=== PATIENT | female | born 1980 | race Caucasian/White ===

== ENCOUNTER → 2017-12-22 07:25 | Outpatient (CLI) | payer OTHER, MEDICAID, SELFPAY ==
--- NOTE | 2017-12-22 07:26 | DI.US.S_ITS ---
PROCEDURE: US OB <= 14 WEEKS FETUS INDICATIONS: DATES OUTSIDE/PRIOR DATING DATA: Last menstrual period (LMP): 10/11/17. LMP-based estimated date of delivery (ABDULLAHI): 07/18/18. First dating scan (date and location): 12/22/17. Estimated date of delivery (ABDULLAHI) from first dating scan: 07/16/18. TECHNIQUE: Real-time scanning was performed of the fetus and maternal pelvic organs, with image documentation. Endovaginal scanning was also performed to better visualize the fetus and maternal ovaries. COMPARISON: None. FINDINGS: Embryo: [place]-rump length measures 3.6 cm corresponding to 10 week 4 days. Heart rate measures 168 beats per minute. Measurement variability in dating: +/- 4 weeks by LMP, +/- 7 days by mean sac diameter (use before 6 weeks gestation if crown-rump length not able to be measured), +/- 5 days by crown-rump length (up to 8 weeks 6 days gestation), +/- 7 days by crown-rump length (up to 13 weeks 6 days gestation). Maternal organs: Ovaries not visualized. Limited images through the kidneys demonstrate no hydronephrosis. IMPRESSION: Single living IUP with gestational age estimated at 10 weeks 4 days. Dictated by: Catalino RUGGIERO Interpreted: Dayo Sosa MD on 12/22/2017 at 8:37 Approved by: Dayo Sosa M.D. on 12/22/2017 at 11:41
[2017-12-22 08:39] LABS: Add Manual Diff / Slide Review NO; Basophils Percent Auto 0.5 % (0-2); Hematocrit 37.7 % (36-46); Hemoglobin 12.7 g/dL (12.0-16.0); Lymphocytes Percent Auto 18.1 % (25-40); Mean Corpuscular HGB Conc 33.7 % (30-36); Mean Corpuscular Hemoglobin 28.7 PG (26-34); Mean Corpuscular Volume 85.2 fL (80-100); Monocytes Percent Auto 6.5 % (3-14); Neutrophils Absolute Auto 3800 /uL (3000-5900); Neutrophils Percent Auto 71.9 % (50-75); Platelet Count 178 X10^3/uL (150-400); Red Blood Cell Count 4.42 X10^6/uL (4.0-5.2); Red Cell Distribution Width 14.8 % (11.6-14.8); White Blood Cell Count 5.4 X10^3/uL (4.5-11.0)
[2017-12-22 08:44] LABS: Appearance Urine UA CLEAR; Bilirubin Urine UA NEGATIVE (NEGATIVE); Color Urine UA YELLOW; Glucose Urine UA NEGATIVE (Normal); Ketones Urine UA TRACE (NEGATIVE); Leukocyte Esterase Urine UA NEGATIVE (NEGATIVE); Nitrite Urine UA NEGATIVE (Negative); Occult Blood Urine UA NEGATIVE (Negative); Protein Urine UA TRACE (Negative); Urobilinogen Urine UA 0.2 E.U./dL (0.2); pH Urine UA 7.5 (4.5-8.0)
[2017-12-22 09:28] LABS: Hepatitis B Surface Antigen NEGATIVE s/c (NEGATIVE); Rubella Antibody IgG 26.7 IU/mL (>15)
[2017-12-22 09:44] LABS: HIV 1 and 2 Antibody NEGATIVE (NEGATIVE); Hep C Virus Ab w/Reflex Quant NEGATIVE s/c (NEGATIVE)
[2017-12-23 13:23] LABS: RPR Screen Nonreactive (Nonreactive)
[2017-12-24 08:53] LABS: HSV 2 IGG AB < 0.90 index (< 0.90)
== END ==
PROVIDERS: PCP Obstetrics & Gynecology; Visit Provider Obstetrics & Gynecology
DX: Z34.81 Encounter for supervision of other normal pregnancy, first trimester (principal); Z36.89 Encounter for other specified antenatal screening; Z3A.10 10 weeks gestation of pregnancy
CPT/HCPCS: 36415; 76801; 76817; 80055; 81003; 86695; 86696; 86703; 86787; 86803; 86850; 86900; 86901; 87086

== ENCOUNTER → 2018-01-04 15:34 | Outpatient (CLI) | payer OTHER, MEDICAID, SELFPAY ==
[2018-01-04 20:41] LABS: Urine N gonorrhoeae NOT DETECTED
[2018-01-04 20:44] LABS: Urine Chlamydia NOT DETECTED
== END ==
PROVIDERS: PCP Obstetrics & Gynecology; Visit Provider Obstetrics & Gynecology
DX: Z34.81 Encounter for supervision of other normal pregnancy, first trimester (principal)
CPT/HCPCS: 87491; 87591

== ENCOUNTER → 2018-03-03 09:11 | Outpatient (CLI) | payer OTHER, MEDICAID, SELFPAY ==
--- NOTE | 2018-03-03 09:12 | DI.US.S_ITS ---
PROCEDURE: US OB >= 14 WEEKS FETUS INDICATIONS: ANATOMY SURVEY OUTSIDE/PRIOR DATING DATA: Last menstrual period (LMP): 10/11/17. LMP-based estimated date of delivery (ABDULLAHI): 07/18/18. First dating scan (date and location): 01/01/18. Estimated date of delivery (ABDULLAHI) from first dating scan: 07/16/18. TECHNIQUE: Real-time scanning was performed of the fetus, with image documentation and biometric measurements. Endovaginal scanning: No COMPARISON: [facility], , OB >= 14 WEEKS FETUS, 01/04/2018, 15:46. FINDINGS: General: A single living intrauterine gestation is present. Presentation: Transverse. Placenta: Placental position is posterior, without previa. Amniotic fluid index: 1.2 cm, normal range is 5-24 cm. heart rate: 144 beats per minute. Maternal cervical canal: 4.3 cm long. Normal lower limit is 2.5 cm. biometrics: Biparietal diameter: 19 weeks 6 days Head circumference: 20 weeks 1 day Abdominal circumference: 20 weeks 1 day Femur length: 20 weeks 0 days Estimated gestational age from initial scan: 20 weeks 5 days Composite gestational age from present scan: 20 weeks 0 days Estimated weight and percentile: 332 g; 17 percentile Measurement variability for biometric dating: +/- 7 days from 14 weeks to 15 weeks 6 days gestation, +/- 10 days from 16 weeks to 21 weeks 6 days gestation, +/- 2 weeks from 22 weeks to 27 weeks 6 days gestation, +/- 3 weeks for 28 weeks gestation or later. weight reference: 4500 g or EFW >90/95% is considered macrosomia or large for gestational age. EFW <10% is small for gestational age. EFW 5% or less is considered intra-uterine growth restriction. Anatomic survey: Neuro: Ventricles are non-dilated at less than 10 mm. Cisterna magna is normal at 3-11 mm. Cerebellum is normal in size and morphology. Nuchal skin fold: Normal at less than 6 mm between 14-21 weeks gestational age. Face: Nose and lips, facial profile are normal. Spine: No evidence for spina bifida. Heart: 4-chambered heart is present, with normal ventricular outflow tracts. Diaphragm: Diaphragm is intact. Stomach: Left-sided stomach is present. Kidneys: No hydronephrosis. Normal is less than 5 mm in 2nd trimester, less than 7 mm in 3rd trimester. Cord: 3-vessel cord has orthotopic insertion. Bladder: Normal in size. Extremities: All 4 extremities identified. IMPRESSION: 1. Single living IUP we demonstrated an interval growth is normal. 2. Normal anatomic survey. Dictated by: Catalino RUGGIERO Interpreted: Ute De Guzman MD on 03/03/2018 at 11:55 Approved by: Ute De Guzman M.D. on 03/03/2018 at 14:56
== END ==
PROVIDERS: PCP Nurse Practitioner Gerontology; Visit Provider Obstetrics & Gynecology
DX: Z34.82 Encounter for supervision of other normal pregnancy, second trimester (principal); Z3A.20 20 weeks gestation of pregnancy
CPT/HCPCS: 76811

== ENCOUNTER → 2018-04-13 07:44 | Outpatient (CLI) | payer OTHER, MEDICAID, SELFPAY ==
[2018-04-13 10:09] LABS: Hematocrit 31.2 % (36-46); Hemoglobin 10.2 g/dL (12.0-16.0)
[2018-04-13 10:17] LABS: GTT (PREG) 1 Hour PP 50gm Dose 86 mg/dL (76-139)
== END ==
PROVIDERS: PCP Nurse Practitioner Gerontology; Visit Provider Obstetrics & Gynecology
DX: Z34.82 Encounter for supervision of other normal pregnancy, second trimester (principal)
CPT/HCPCS: 36415; 82950; 85014; 85018

== ENCOUNTER → 2018-06-23 13:17 | Outpatient (CLI) | payer OTHER, MEDICAID, SELFPAY ==
[2018-06-24 13:19] LABS: Strep Grp B PCR NEG for Grp B Strep
== END ==
PROVIDERS: PCP Nurse Practitioner Gerontology; Visit Provider Obstetrics & Gynecology
DX: Z34.83 Encounter for supervision of other normal pregnancy, third trimester (principal); Z3A.36 36 weeks gestation of pregnancy
CPT/HCPCS: 87653

== ENCOUNTER 2018-07-14 14:58 | Outpatient (CLI) | payer OTHER, MEDICAID, SELFPAY | END 2018-07-14 16:29 | disposition home or self-care (01) | LOC: OB 07-18 14:22 | PROVIDERS: PCP Nurse Practitioner Gerontology; Visit Provider Obstetrics & Gynecology | DX: O47.1 False labor at or after 37 completed weeks of gestation (principal); Z3A.39 39 weeks gestation of pregnancy | CPT/HCPCS: 59025; G0378; G0379 ==

== ENCOUNTER 2018-07-20 06:53 | Inpatient (IN) | payer OTHER, MEDICAID, SELFPAY ==
--- NOTE | 2018-07-20 07:54 | PM.OBHP.1 ---
OB HPI Date/Time Date of admission: 07/20/18 Date Patient Seen: 07/20/18 Time Patient Seen: 07:55 History of Present Condition Chief complaint: OBS : 7 Para: 4 Estimated Date of Delivery: 07/17/18 Estimated Gestational Age (weeks): 40+3 Narrative: Susan Wilcox is a 38 year old female 7 para 4 at 40-,3/7 weeks gestation here for induction of labor Indications Indication for induction OB: post dates History of Present care: good care, initiated at week # (12), number of visits (9) and pounds weight gain (20) Dating criteria: LMP confirmed by 1st trimester US Ultrasounds: normal 1st trimester US and normal mid trimester US Obstetrical complications: none Medical complications: none Preadmission Labs Blood type: A (+) positive -: Antibody screen: negative, GBS status: negative, HBsAG: negative, HIV: negative, HSV 1: positive, HSV 2: negative and RPR/VDLR: negative -: Chlamydia screen: not detected and Gonorrhea screen: not detected -: Rubella: immune and Varicella: immune HCT: 37 HCAB: negative PAP: Normal Quad screen: Normal Urine: Mixed 1 hr GTT: 86 Prior (ies) History: 1 molar 4 's 1 SAB Evaluation Evaluation Baseline heart rate: 130 Variability: Moderate (11-25) monitor accelerations: Present monitor decelerations: Absent Contraction Frequency (minutes): 5 Uterine Contraction Intensity: Mild Category of Tracing: I Cervical dilation (cm): 2 Cervical effacement (%): 75 station: -3 PFSH Surgical History (Updated 08/04/17 @ 12:51 by Jenniffer Wilburn) History of third molar tooth extraction (Resolved) Status post dilation and curettage (Resolved 2012) Status post dilation and curettage (Resolved 09/12/15) Social History Smoking Status: Never smoker Social History Smoking Status: Never smoker Meds Home Medications Medication Instructions Recorded Confirmed Type riboflavin (vitamin B2) [Vitamin QHS #0 09/12/15 History B-2] ondansetron 4 mg disintegrating 4 mg PO Q6H PRN #20 tab 12/20/17 Rx tablet omeprazole 20 mg capsule,delayed 20 mg PO DAILY #30 cap 06/13/18 Rx release Allergies Allergy/AdvReac Type Severity Reaction Status Date / Time penicillin G Allergy Mild RASH Unverified 05/26/17 12:19 Exam Vital Signs (past 8 hours): Generally: Patient lying in bed, no acute distress Lungs: Clear to auscultation bilaterally Cardiovascular: Regular rate and rhythm Fundal height: 39 cm Estimated weight: 7-1/2 lb Extremities: Negative Homans, no edema Assessment and Plan Assessment and Plan Assessment and Plan narrative: Assessment: 38-year-old 7 para 4 at 40-,3/7 weeks gestation for induction of labor Plan: Pitocin per protocol to Epidural as necessary Artificial rupture of membranes when able Expected management to spontaneous vaginal delivery Time Spent with Patient Total time spent with greater than 50% in coordination of care (as documented) at patient's floor/unit and/or counseling patient:: 15-24 minutes
[2018-07-20] MEDS: LACTATED RINGERS 1,000 ML 100 ML IV ×2 (08:08→15:03)
[2018-07-20] MEDS: OXYTOCIN PREMIX 30 UNIT/500 ML PLAST..BAG IV (08:09)
[2018-07-20 08:46] LABS: Basophils Absolute Auto 0 /uL (0-100); Basophils Percent Auto 0.7 % (0-2); Eosinophils Absolute Auto 200 /uL (0-450); Eosinophils Percent Auto 2.7 % (2-4); Hematocrit 37.1 % (36-46); Hemoglobin 12.6 g/dL (12.0-16.0); Lymphocytes Absolute Auto 1400 /uL (1100-4500); Lymphocytes Percent Auto 20.9 % (25-40); Mean Corpuscular HGB Conc 33.9 % (30-36); Mean Corpuscular Hemoglobin 28.9 PG (26-34); Mean Corpuscular Volume 85.2 fL (80-100); Monocytes Absolute Auto 500 /uL (0-900); Monocytes Percent Auto 7.9 % (3-14); Neutrophils Absolute Auto 4400 /uL (1500-7000); Neutrophils Percent Auto 67.8 % (50-75); Red Blood Cell Count 4.36 X10^6/uL (4.0-5.2); Red Cell Distribution Width 17.3 % (11.6-14.8); White Blood Cell Count 6.5 X10^3/uL (4.5-11.0)
[2018-07-20 08:52] LABS: Add Manual Diff / Slide Review SLIDE REVIEW; Platelet Count 122 X10^3/uL (150-400)
[2018-07-20 09:11] VITALS: BP 136/86
[2018-07-20 09:20] LABS: Poikilocytosis 1+
--- NOTE | 2018-07-20 21:46 | PM.OBPRVD ---
Events: Labor Induction Delivery date: 07/20/18 Intrapartal events: None Cervical ripening method: none Induction method: per pitocin protocol Delivery augmentation: rupture of membranes Delivery monitor: external FHT and external uterine Route of delivery: Episiotomy description: None L&D Laceration Description: Superficial (Labial) Delivery repair: chromic Estimated blood loss (mL): 150 Anesthesia type: Epidural Complications: None Narrative: The patient was complete and pushed x2. At 9:24 p.m., a live female delivered spontaneously in the right occiput transverse presentation, over an intact perineum. The remainder of the body delivered without difficulty and was placed on mom's abdomen. Once the cord stopped pulsing was clamped x2 and cut. Cord bloods were obtained. Pitocin was given in the IV fluids. At 9:38 p.m., the placenta delivered intact with a three-vessel cord. Fundus was massaged to firm. Estimated blood loss 150 cc. There were 2 superficial lacerations at the labia minora bilaterally. These were repaired with 4 0 chromic. Hemostasis was achieved. Apgars 8 at 1 minute and 9 at 5 minutes. . Epidural analgesia. Mom and infant stable to recovery. Plan for aftercare: To routine care
[2018-07-21] MEDS: KETOROLAC 30 MG/ML VIAL IV ×2 (02:25→09:14)
[2018-07-21 06:56] LABS: Hematocrit 34.1 % (36-46); Hemoglobin 11.4 g/dL (12.0-16.0)
[2018-07-21] MEDS: ACETAMINOPHEN 325 MG TABLET 650 MG PO (06:57)
[2018-07-21] MEDS: LANOLIN OINT 7 GM 1 APPLIC TOP (09:04)
[2018-07-21] MEDS: DOCUSATE 250 MG CAPSULE PO (09:04)
[2018-07-21] MEDS: PRENATAL VIT,CALC/IRON/FOLIC 1 TABLET 1 TAB PO (09:04)
[2018-07-21 09:11] VITALS: TEMP 36.8
[2018-07-21] MEDS: OXYCODONE/ACETAMINOPHEN 5/325 TABLET 2 TAB PO ×2 (09:11→19:01)
[2018-07-21 09:14] VITALS: TEMP 36.8
[2018-07-21 18:44] VITALS: BP 111/72; PULSE 76; TEMP 36.8
--- NOTE | 2018-07-21 21:32 | P.DS_ITS ---
Discharge Providers Date of admission: 07/20/18 06:53 Discharge Date: 07/21/18 Primary care physician: AURELIA Goldberg Consults: 07/21/18 00:24 Consult to Household Appliance Repairer Routine Comment: Discharge provider: Janie Keith MD Summary Date Patient Seen: 07/21/18 Time Patient Seen: 14:00 Procedures: Artificial rupture of membranes Augmentation of labor with Pitocin Epidural analgesia Spontaneous vaginal delivery Hospital Course: Patient is a 38-year-old who was admitted on 07/20/2018 for rupture of membranes for induction of labor. She had clear amniotic fluid. She was started on Pitocin augmentation. She received an epidural for pain management. She progressed and had a spontaneous vaginal delivery without complication Her course was unremarkable. She is discharged home on postop day # 1. She will follow up at 6 weeks. Peripartum Data Infant Delivery Method: Natural Vaginal Laceration description: Superficial Episiotomy description: None Procedures: Artificial rupture of membranes Pitocin augmentation of labor Epidural analgesia Spontaneous vaginal delivery complications: none Status at Discharge Cognitive/behavioral status at discharge: oriented Functional status at discharge: independent ambulation Overall status at discharge: patient is progressing back to baseline Time Spent with Patient Total time spent providing and/or coordinating discharge services: Less than 30 minutes Objective Labs Result Diagrams: 07/21/18 06:43 Labs: Laboratory Results - last 24 hr 07/21/18 06:43 Hgb 11.4 L Hct 34.1 L Exam Vital Signs (past 8 hours): - 07/21/18 18:44 Temperature 98.3 F Pulse Rate 76 Blood Pressure 111/72 Discharge Plan Discharge Plan Patient Disposition: Home Discharge comment: Call with fever, chills or bleeding vaginally more than a pad in an hour Discharge Med Rec/Prescriptions Prescriptions: New oxycodone-acetaminophen [Percocet] 5-325 mg tablet 1 tab PO Q4-6H PRN (Reason: pain) Qty: 14 RF: 0 Continued Vitamin B-2 25 mg tablet 1 tab PO QHS Qty: 0 RF: 0 Discontinued omeprazole 20 mg capsule,delayed release(DR/EC) 20 mg PO DAILY Qty: 30 RF: 2 Follow up/Referrals: Janie Keith MD [Physician] - 6 Weeks (Pt has appointment with Dr. Airas on August @ 2pm) Provider Discharge Instructions Diet: Regular Activity: No intercourse Skin/Wound/Dressing Care Report to your healthcare provider any signs of infection, such as:: chills, fever, increased pain and unusual drainage Visit Report/Discharge Packet Instructions: DI for Labor and Delivery, Vaginal Stand Alone Forms: Discharge: Care Discharge Data Primary Care Provider: Hannah Mckeon Attending Provider: Janie Keith Admit Date/Time: 07/20/18 06:53 Discharges patient from system. Discharge Date/Time: 07/21/18 19:00
== END 2018-07-21 19:00 | disposition home or self-care (01) | DRG 560 ==
PROVIDERS: Admitting Provider Obstetrics & Gynecology; PCP Nurse Practitioner Gerontology; Visit Provider Obstetrics & Gynecology
DX: O48.0 Post-term pregnancy (principal); Z3A.40 40 weeks gestation of pregnancy; Z37.0 Single live birth; O70.0 First degree perineal laceration during delivery
CPT/HCPCS: 01967; 36415; 59050; 59409; 85014; 85018; 85025; 86850; 86900; 86901; J1885; J2590; J3010

== ENCOUNTER → 2019-12-18 15:11 | Outpatient (CLI) | payer OTHER, MEDICAID, SELFPAY ==
[2019-12-18 15:23] LABS: Add Manual Diff / Slide Review NO; Basophils Absolute Auto 0 /uL (0-100); Eosinophils Absolute Auto 200 /uL (0-450); Eosinophils Percent Auto 4.2 % (2-4); Hematocrit 41.5 % (36-46); Hemoglobin 13.6 g/dL (12.0-16.0); Lymphocytes Absolute Auto 1400 /uL (1100-4500); Mean Corpuscular HGB Conc 32.8 % (30-36); Mean Corpuscular Hemoglobin 29.9 PG (26-34); Mean Corpuscular Volume 91.1 fL (80-100); Monocytes Absolute Auto 300 /uL (0-900); Monocytes Percent Auto 5.9 % (3-14); Neutrophils Absolute Auto 2700 /uL (1500-7000); Neutrophils Percent Auto 57.9 % (50-75); Platelet Count 200 X10^3/uL (150-400); Red Blood Cell Count 4.56 X10^6/uL (4.0-5.2); Red Cell Distribution Width 12.9 % (11.6-14.8); White Blood Cell Count 4.6 X10^3/uL (4.5-11.0)
[2019-12-18 16:17] LABS: HEMOLYSIS < 15 (0-50); Iron 76 ug/dL (37-170)
[2019-12-18 16:28] LABS: Percent Iron Saturation 23 % (15-50); Total Iron Binding Capacity 330 ug/dL (265-497); Transferrin 258 mg/dL (206-381)
[2019-12-18 16:47] LABS: TSH w/ Reflex to FT4 1.02 uIU/mL (0.47-4.68)
== END ==
PROVIDERS: PCP Registered Nurse Diabetes Educator; Referring Provider Registered Nurse Diabetes Educator; Visit Provider Registered Nurse Diabetes Educator
DX: D50.9 Iron deficiency anemia, unspecified (principal); F41.9 Anxiety disorder, unspecified; R53.83 Other fatigue
CPT/HCPCS: 36415; 83540; 83550; 84443; 85025

== ENCOUNTER → 2022-05-15 10:23 | Outpatient (CLI) | payer OTHER, MEDICAID, SELFPAY ==
[2022-05-15 11:24] LABS: Follicle Stimulating Hormone 3.28 mIU/mL
[2022-05-15 16:51] LABS: Free T4, Direct Thyroxine 1.04 ng/dL (0.78-2.19)
[2022-05-15 17:05] LABS: Thyroid Stimulating Hormone 0.893 uIU/mL (0.47-4.68)
== END ==
PROVIDERS: PCP Registered Nurse Diabetes Educator; Referring Provider Obstetrics & Gynecology; Visit Provider Obstetrics & Gynecology
DX: N95.1 Menopausal and female climacteric states (principal); R53.83 Other fatigue
CPT/HCPCS: 36415; 83001; 84439; 84443

== ENCOUNTER → 2022-05-25 07:54 | Outpatient (CLI) | payer OTHER, MEDICAID, SELFPAY ==
[2022-06-01 14:56] LABS: Percent Free Testosterone 0.94 % (0.50-2.80); Testosterone Free 0.21 ng/dL (0.10-0.85); Testosterone Total 22.6 ng/dL (.)
== END ==
PROVIDERS: Obstetrics & Gynecology; PCP Registered Nurse Diabetes Educator; Referring Provider Registered Nurse Diabetes Educator; Visit Provider Registered Nurse Diabetes Educator
DX: E28.319 Asymptomatic premature menopause (principal); L70.9 Acne, unspecified; R45.4 Irritability and anger
CPT/HCPCS: 36415; 84144; 84402; 84403

== ENCOUNTER → 2023-12-30 07:52 | Outpatient (CLI) | payer OTHER, MEDICAID, SELFPAY ==
[2023-12-30 09:00] LABS: Hematocrit 39.1 % (36-46); Hemoglobin 13.3 g/dL (12.0-16.0); Mean Corpuscular Hemoglobin 30.1 PG (26-34); Mean Corpuscular Volume 88.6 fL (80-100); Platelet Count 205 X10^3/uL (150-400); Red Blood Cell Count 4.42 X10^6/uL (4.0-5.2); Red Cell Distribution Width 13.6 % (11.6-14.8); White Blood Cell Count 3.6 X10^3/uL (4.5-11.0)
[2023-12-30 09:26] LABS: Alanine Aminotransferase 19 IU/L (<35); Albumin 4.2 g/dL (3.5-5.0); Albumin Globulin Ratio 1.6 (1.0-2.8); Alkaline Phosphatase 33 U/L (38-126); Aspartate Aminotransferase 26 IU/L (14-36); BUN Creatinine Ratio 13.3 (6-22); Bilirubin Total 0.6 mg/dL (0.2-1.3); Blood Urea Nitrogen 11 mg/dL (7-17); Calcium 9.6 mg/dL (8.4-10.2); Carbon Dioxide 26 mmol/L (22-32); Chloride 107 mmol/L (98-107); Cholesterol 178 mg/dL (140-199); Estimated Glomerular Filt Rate > 60 mL/min (>60); Globulin 2.6 g/dL (1.7-4.1); Glucose 82 mg/dL (70-100); HDL Cholesterol 70 mg/dL (40-60); HEMOLYSIS < 15 (0-50); LDL Cholesterol Calculated 98 mg/dL (<100); Potassium 4.5 mmol/L (3.4-5.1); Sodium 139 mmol/L (137-145); Total Protein 6.8 g/dL (6.3-8.2); Triglycerides 50 mg/dL (35-150)
[2023-12-30 09:42] LABS: Follicle Stimulating Hormone 3.26 mIU/mL
[2023-12-30 09:44] LABS: HCG Quantitative /Beta subunit < 2.39 mIU/mL; Prolactin 9.1 ng/mL (3.0-18.6)
[2023-12-30 09:52] LABS: TSH w/ Reflex to FT4 0.84 uIU/mL (0.47-4.68)
[2024-01-03 13:37] LABS: Inhibin B 87.7 pg/mL (.)
== END ==
PROVIDERS: PCP Registered Nurse Diabetes Educator; Referring Provider Registered Nurse Diabetes Educator; Visit Provider Registered Nurse Diabetes Educator
DX: N95.1 Menopausal and female climacteric states (principal); N92.6 Irregular menstruation, unspecified; D50.9 Iron deficiency anemia, unspecified; R23.2 Flushing
CPT/HCPCS: 36415; 80053; 80061; 82397; 83001; 83520; 84146; 84443; 84702; 85027

== ENCOUNTER → 2024-01-28 13:10 | Outpatient (CLI) | payer OTHER, SELFPAY ==
--- NOTE | 2024-01-28 13:11 | DI.MG.S_ITS ---
BILATERAL DIGITAL SCREENING MAMMOGRAM 3D/2D WITH CAD: 01/28/2024 CLINICAL: Routine screening. Baseline exam. No prior exams were available for comparison. The breasts are heterogeneously dense, which may obscure small masses (category c / 51-75% glandular tissue). Current study was also evaluated with a Computer Aided Detection (CAD) system. No significant masses, calcifications, or other findings are seen in either breast. IMPRESSION: NEGATIVE There is no mammographic evidence of malignancy. A 1 year screening mammogram is recommended. Based on the Tyrer Cuzick model (a risk assessment model) the patient's lifetime risk is 12.0% and her 10 year risk is 1.6%. According to the ACR, ACS, and NCCN guidelines, an annual breast MRI exam along with mammogram is recommended if the patient's lifetime risk is 20% or greater. This exam was interpreted at Station ID: [id number]. NOTE: For mammograms, a report in lay terms will be sent to the patient. Approximately 15% of breast malignancies will not be visualized mammographically. In the management of a palpable breast mass, a negative mammogram must not discourage biopsy of a clinically suspicious lesion. Electronically Signed By: Rafat pickard/theodore:02/01/2024 07:27:29 letter sent: Normal Exam ACR BI-RADS Category 1: Negative
== END ==
PROVIDERS: Family Provider Registered Nurse Diabetes Educator; PCP Registered Nurse Diabetes Educator; Referring Provider Registered Nurse Diabetes Educator; Visit Provider Registered Nurse Diabetes Educator
DX: Z12.31 Encounter for screening mammogram for malignant neoplasm of breast (principal); R92.333 Mammographic heterogeneous density, bilateral breasts
CPT/HCPCS: 77063; 77067

== ENCOUNTER → 2024-03-20 13:54 | Outpatient (CLI) | payer OTHER, SELFPAY ==
[2024-03-20 15:56] LABS: Influenza A - CEPHEID Flu A NEGATIVE (NEGATIVE); Influenza B - CEPHEID Flu B NEGATIVE (NEGATIVE); Respiratory Syncytial Virus Negative (Negative)
[2024-03-20 15:57] LABS: COVID-19 CEPHEID 4-PLEX PCR Negative (Negative)
== END ==
PROVIDERS: Family Provider Registered Nurse Diabetes Educator; PCP Registered Nurse Diabetes Educator; Visit Provider Registered Nurse
DX: R07.0 Pain in throat (principal); R05.9 Cough, unspecified; R09.89 Other specified symptoms and signs involving the circulatory and respiratory systems
CPT/HCPCS: 87635; 87400 ×2; 87420; 0241U; 87070; 87880

== ENCOUNTER 2024-03-28 07:30 | Outpatient (RCR) | payer OTHER, SELFPAY ==
--- NOTE | 2024-01-31 10:28 | PT.OIE ---
Current Diagnoses Stiffness of right hip, not elsewhere classified (01/31/24) Stiffness of left hip, not elsewhere classified (01/31/24) Stiffness of other specified joint, not elsewhere classified (01/31/24) Low back pain, unspecified (01/31/24) Other lack of coordination (01/31/24) Weakness (01/31/24) Past Medical History (Last Reviewed 12/30/23 @ 14:00 by AURELIA Chowdhury) Insomnia Iron deficiency anemia Past Surgical History (Last Reviewed 12/30/23 @ 14:00 by AURELIA Chowdhury) History of third molar tooth extraction Status post dilation and curettage (2012) Status post dilation and curettage (09/12/15) Visit Care Team Role Provider Type AURELIA Chowdhury Attending Provider 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 Primary Care Provider Referring Provider Specialty: Medical Address: [address] [place] [address] Email: [email or web address] Physical Therapy Initial Evaluation PT-OP-A Visit Information Start: 01/28/24 16:40 Freq: Status: Active Protocol: Document 01/31/24 08:58 NM (Rec: 01/31/24 09:46 NM [id number]) Out-Patient Physical Therapy Visit Information Visit Information Visit Type Initial Evaluation Visit Note 12 visits incl eval/year Visit Start Time 09:02 Visit Stop Time 09:45 Visit Number 02/26 Evaluation Information Evaluation Date 01/31/24 PT-OP-B Current Condition Start: 01/28/24 16:40 Freq: Status: Active Protocol: Document 01/31/24 08:58 NM (Rec: 01/31/24 09:46 NM [id number]) Current Condition History of Current Condition Onset Date September 2023 Current Complaints pain History of Current Condition Pt reports pain back, R>L. She states it began in September 2023, thinks due to overuse, no specific event or trigger. Began with back spasms and tightness. She reprots that had to get a back brace to assist with sitting and doing ADLs/housework for about 1 week, on-off. In end of October, re-occured following a light yoga routine , reports got the spasms and tightness again. When in pain, pt has to lie down and wear a brace. Has gone to a chiropractor on-off, which has helped but not resolved the issues; was going to chiropractor for her neck then transitioned her to back. She likes to lift weights, run, play basketball; has had to taper her activity quite a bit . Pain is primarily in the low back, worse with HS stretch in sitting and deep squat/hip flexion. Has not been taking a muscle relaxer; prn advil. Pt reports that in highschool, she injured her back while lifting on R side; 7-8 years ago, reached from pull below feel level to lift child from pool. No numbness or tingling into BLE, no changes. Has 5 kids, youngest kid born in 2019. When had epidural with last kid, hard to get epidural in, lots of pain in R leg; following, RLE took longer to recover. No c-sections. Hips are tight, R>L, and painful. Current Functional Impairments (Reported) Functional Limitations- ADL's housework Functional Limitations- Work/School driving lifting Functional Limitations- Other yoga: prn stretching, not a great stretcher weight liftinx/wk ([employer] ) - HIIT w/ dumbbells 8-15# db - unable to deadlift and squat, minimal lunges rest/light day 1-3 mi walk runnin mi (2-4 mi), does not stop during but afterwards PT-OP-C Subjective Start: 01/28/24 16:40 Freq: Status: Active Protocol: Document 01/31/24 08:58 NM (Rec: 01/31/24 09:46 NM [id number]) OP-PT Subjective Patient Comments Patient Comments Pt consents to participate in evaluation Patient Questionnaires Oswestry Low Back Index Oswestry Score 30/100 (30% impairment) OP-PT Pain Assessment Location lumbar spine Pain Location Details R>L Intensity 4 Scale Used Numeric (0 - 10) Description Aching,Spasm,Tightness Description- Other worst:7/10, best 3/10 Frequency Frequent Radiating Location along spine, around to side/ front abdomen Pain Aggravating Factors Position,Exercise,Standing, Sitting,Bending,Lifting Pain Alleviating Factors Heat,Medication,Lying Supine Other Pain Alleviating Factors chiropractor PT-OP-E Functional Tests Start: 01/28/24 16:40 Freq: Status: Active Protocol: Document 01/31/24 08:58 NM (Rec: 01/31/24 09:46 NM [id number]) Functional Tests Other flexion test Name of Test arms across chest Score 10 Comment challenging, no pain plank Name of Test full plank for time Score 26 Comment feels tightness in lower back PT-OP-F Manual Assessment Start: 01/28/24 16:40 Freq: Status: Active Protocol: Document 01/31/24 08:58 NM (Rec: 01/31/24 09:46 NM [id number]) Manual Assessments Soft Tissue Assessment Soft Tissue Mobility Assessment Tightness R>L and hypertrophy of lumbar paraspinals L>R Joint Mobility Assessment Joint Mobility Assessment R rot inward, post rot, L shoulder higher, no scoliosis PT-OP-G Mobility & Gait Start: 01/28/24 16:40 Freq: Status: Active Protocol: Document 01/31/24 08:58 NM (Rec: 01/31/24 09:58 NM [id number]) OP Gait Assessment Gait Gait Assistance Required: Independent Distance (Feet) 150 Comments Gait Comments Decrease rotation at trunk, less rotation at hips and motion at TL junction R>L PT-OP-J Posture/Palpation/Skin Start: 01/28/24 16:40 Freq: Status: Active Protocol: Document 01/31/24 08:58 NM (Rec: 01/31/24 09:58 NM [id number]) Posture Evaluation Position Standing Head/C-Spine Posture Forward Head L-Spine Posture Increased Lordosis Shoulder Posture (L) Forward,(R) Forward,(L) Elevated Pelvis Posture Anteriorly Tilted,(R) PSIS Posterior Weight Distribution Balanced Knee Posture (L) Genu Valgus,(R) Genu Valgus Ankle/Foot Posture (L) Neutral,(R) Neutral Palpation Assessment Location lumbar spine Palpation Details Mild tenderness at lower lumbar spine and B SIJ/PSIS R> L; TL junction Mild tenderness at lumbar paraspinals PT-OP-K Range of Motion Start: 01/28/24 16:40 Freq: Status: Active Protocol: Document 01/31/24 08:58 NM (Rec: 01/31/24 09:46 NM [id number]) Lumbar Spine Range of Motion Lumbar Spine Active Percentage Flexion 100 Extension 100 Rotation Left 75 Rotation Right 100 Lateral Flexion Left 100 Lateral Flexion Right 100 Comments + : ext dmitry at TL Junction, pain LF B, tape measure: Hip Goniometric Range of Motion Hip Right Extension 6 Internal Rotation 30 External Rotation 28 Comments Hip ext and hip IR/ER reproduces pinching in low back at TL junction Left Extension 10 Internal Rotation 40 External Rotation 40 PT-OP-L Special Tests Start: 01/28/24 16:40 Freq: Status: Active Protocol: Document 01/31/24 08:58 NM (Rec: 01/31/24 09:46 NM [id number]) Special Tests Lumbar Spine Special Tests Burnette/quadrant Test Results + Comments no radicular; local 3D pain PT-OP-M Strength Start: 01/28/24 16:40 Freq: Status: Active Protocol: Document 01/31/24 08:58 NM (Rec: 01/31/24 09:46 NM [id number]) Trunk Strength Trunk Manual Muscle Testing Flexion 4 Good Extension 4 Good Rotation Left 4+ Good+ Rotation Right 4+ Good+ Lateral Flexion Left 4+ Good+ Lateral Flexion Right 4+ Good+ Comments No pain reproduced with resisted testing; see plank and flexion resisted test for flex/ext strength Hip Strength Hip Manual Muscle Testing Right Flexion (L2) 4- Good- Extension (S1) 4 Good Abduction 4 Good Adduction 4+ Good+ External Rotation 4- Good- Internal Rotation 4- Good- Comments reproduced with hip ext Left Flexion (L2) 4- Good- Extension (S1) 4 Good Abduction 4 Good Adduction 4+ Good+ External Rotation 4- Good- Internal Rotation 4- Good- Knee Strength Knee Manual Muscle Testing Right Flexion (S2) 4+ Good+ Extension (L3) 4+ Good+ Left Flexion (S2) 4+ Good+ Extension (L3) 4+ Good+ PT-OP-Q Treatments Start: 01/28/24 16:40 Freq: Status: Active Protocol: Document 01/31/24 08:58 NM (Rec: 01/31/24 09:46 NM [id number]) Therapeutic Exercises Prone Exercises prone lying Prone Exercise Name head on hands Reps/Minutes 2 min Comments no increase in pain; trialed prone on elbows- min magnus so d/ c Other Exercises quadruped Other Exercise Name HEP - 1. ER rock back, 2. firehydrant, 3. adductor rockback Side bilateral Reps/Minutes 10 ea Comments no increased pain w/ activity; neutral spine, cued pain free range Self-Care/Home Management Treatment Education Patient Education Home Exercise Program,Joint Protection,Pain Management Other Education Education on continuing with pain free exercise, recommending slight decrease in frequency and/or intensity depending on pain levels. At this time, recommended avoiding HIIT work outs with emphasis on gentle stretching and strengthening PT-OP-T Assessment and Plan Start: 01/28/24 16:40 Freq: Status: Active Protocol: Document 01/31/24 08:58 NM (Rec: 01/31/24 09:46 NM [id number]) Physical Therapy Assessment Rehab Potential Rehabilitation Potential Good Evaluation Complexity Number of Personal Factors/Comorbidities 1-2 Number of Body Systems Impaired 1-2 Clinical Presentation at Evaluation Stable Impairments Impairments Activity Tolerance,Balance, Functional Activities, Functional Mobility,Gait, Integument,Pain,Posture,ROM, Sensation,Soft Tissue Mobility ,Strength,Transfers,Vestibular Other Concerns Age Related Concerns PMH: back pain, neck pain, jaw pain Barriers to Rehabilitation Pt has limited number of insurance visits; planning to space visits as needed to maximize PT benefits especially into new year Goals Four Impairment pain with lifting Short Term Goal (STG) Pt will be educated on abdominal bracing and breathwork management in order to improve ability to perform lifting ADLs at home STG Duration 4 weeks Finisher Hand Goal (LTG) Pt will be able to perform at least 3/5 lifts from floor without increase in low back pain or compensation LTG Duration 12 weeks Three Impairment R hip mobility limited Fdc Goal (LTG) Pt will improve R hip IR and ER to at least 35 deg and B hip ext to at least 10 deg without increase in pain symptoms in order to demonstrate improvement in trunk movement during gait and exercise LTG Duration 12 weeks Two Impairment plank 26 with increased instability and pain in low back Short Term Goal (STG) Pt will be able to perform plank for at least 30 seconds with minimal compensations or signs of instability at trunk and no increase in back pain to demonstrate improved trunk strength for lifting and carrying ADLs STG Duration 8 weeks Fdc Goal (LTG) Pt will be able to perform plank for at least 1 minute with minimal compensations or signs of instability at trunk and no increase in back pain to demonstrate improved trunk strength for lifting and carrying ADLs LTG Duration 12 weeks One Impairment not performing HEP Short Term Goal (STG) Pt will report compliance with HEP at least 3x/wk in order to maximize progression with PT and transition to maintenance program upon discharge STG Duration 6 weeks Finisher Hand Goal (LTG) Pt will report return to exercise at least 3x/wk ( lifting, HIIT, yoga, running, etc) with back pain <3/10 with activity LTG Duration 12 weeks Assessment Summary Assessment Pt is a 43 y.o. presenting with subacute back pain beginning without known LANCE in September 2023. Pt has had several episodes of spasms and tightness in her low back, which limits her ability to participate in ADLs/IADLs, work-related tasks, and exercise routines. Pt demonstrates full trunk ROM with limitations and symptom reproduction into extension. Trunk and hip strength is reduced, especially into hip and trunk extension and rotation. Pt has less ROM on R hip than L hip, which likely affects pt's lumbopelvic mobility. Symptoms are primarily reproduced into TL junction, R side more limited than L side with ROM and strength during gait and exercise. Pt also has pain with 3D testing, indicating facet pathology with possible discogenic referral. Pt has postural differences between R and L sides at shoulder and pelvis, which further impacts mobility and activity tolerance. PT educated pt on exam findings and plan of care . Pt would benefit from skilled PT to improve trunk and hip strength and mobility for improved symptom management during ADLs and exercise. Physical Therapy Plan Frequency and Duration Frequency of Treatment 1-2x/wk Duration of treatment (weeks) 12 Plan of Care Start Date 01/31/24 Plan of Care End Date 04/28/24 Therapeutic Interventions Therapeutic Interventions Balance Training,Gait Training ,Home Exercise Program,Joint Mobilizations,Manual Therapy, Neuromuscular Re-education, Orthotic/Prosthetic Management ,Patient/Caregiver Education, Self-Care/Home Management, Sensory Integration,Soft Tissue Mobilization,Taping, Therapeutic Activities, Therapeutic Exercises, Vestibular Rehabilitation Modalities Cold Pack/Ice Massage,Electric Stimulation,Hot Packs, Traction- Mechanical, Ultrasound Other Therapeutic Interventions pelvic realignment Trigger point treatment Next Visit Focus/Plan Next Note Type Treatment Note Next Visit Plan limited HEP- progress ea session as magnus review HEP. Progress hip mobility and into extension. hip stretching. breathwork management. Supine > sitting core bracing. Progress to pallof, eventually progress to lift and rotation. Hip hinge mechanics, lifting, and ROM. Teach self STM. Progress into carries and lifting. In future , can trial HIIT or circuit Manual: STM to back and hips. R Hip mobilizations (IR/ER and ext, L hip ext), spine mobilizations as needed and tolerated
--- NOTE | 2024-02-02 08:17 | PT.OTN ---
Current Diagnoses Stiffness of right hip, not elsewhere classified (02/02/24) Stiffness of left hip, not elsewhere classified (02/02/24) Stiffness of other specified joint, not elsewhere classified (02/02/24) Low back pain, unspecified (02/02/24) Other lack of coordination (02/02/24) Weakness (02/02/24) Physical Therapy Treatment Note PT-OP-A Visit Information Start: 01/28/24 16:40 Freq: Status: Active Protocol: Document 02/02/24 07:27 NM (Rec: 02/02/24 08:17 NM [id number]) Out-Patient Physical Therapy Visit Information Visit Information Visit Type Treatment Note Visit Note 12 visits incl eval/year Visit Start Time 07:32 Visit Stop Time 08:15 Visit Number 03/29 Evaluation Information Evaluation Date 01/31/24 PT-OP-B Current Condition Start: 01/28/24 16:40 Freq: Status: Active Protocol: Document 01/31/24 08:58 NM (Rec: 01/31/24 09:46 NM [id number]) Current Condition History of Current Condition Onset Date September 2023 Current Complaints pain History of Current Condition Pt reports pain back, R>L. She states it began in September 2023, thinks due to overuse, no specific event or trigger. Began with back spasms and tightness. She reprots that had to get a back brace to assist with sitting and doing ADLs/housework for about 1 week, on-off. In end of October, re-occured following a light yoga routine , reports got the spasms and tightness again. When in pain, pt has to lie down and wear a brace. Has gone to a chiropractor on-off, which has helped but not resolved the issues; was going to chiropractor for her neck then transitioned her to back. She likes to lift weights, run, play basketball; has had to taper her activity quite a bit . Pain is primarily in the low back, worse with HS stretch in sitting and deep squat/hip flexion. Has not been taking a muscle relaxer; prn advil. Pt reports that in highschool, she injured her back while lifting on R side; 7-8 years ago, reached from pull below feel level to lift child from pool. No numbness or tingling into BLE, no changes. Has 5 kids, youngest kid born in 2019. When had epidural with last kid, hard to get epidural in, lots of pain in R leg; following, RLE took longer to recover. No c-sections. Hips are tight, R>L, and painful. Current Functional Impairments (Reported) Functional Limitations- ADL's housework Functional Limitations- Work/School driving lifting Functional Limitations- Other yoga: prn stretching, not a great stretcher weight liftinx/wk (youtube ) - HIIT w/ dumbbells 8-15# db - unable to deadlift and squat, minimal lunges rest/light day 1-3 mi walk runnin mi (2-4 mi), does not stop during but afterwards PT-OP-C Subjective Start: 01/28/24 16:40 Freq: Status: Active Protocol: Document 02/02/24 07:27 NM (Rec: 02/02/24 08:17 NM [id number]) OP-PT Subjective Patient Comments Patient Comments Pt reports that her low back is tight, which is typical for thr morning PT-OP-E Functional Tests Start: 01/28/24 16:40 Freq: Status: Active Protocol: Document 01/31/24 08:58 NM (Rec: 01/31/24 09:46 NM [id number]) Functional Tests Other flexion test Name of Test arms across chest Score 10 Comment challenging, no pain plank Name of Test full plank for time Score 26 Comment feels tightness in lower back PT-OP-F Manual Assessment Start: 01/28/24 16:40 Freq: Status: Active Protocol: Document 01/31/24 08:58 NM (Rec: 01/31/24 09:46 NM [id number]) Manual Assessments Soft Tissue Assessment Soft Tissue Mobility Assessment Tightness R>L and hypertrophy of lumbar paraspinals L>R Joint Mobility Assessment Joint Mobility Assessment R rot inward, post rot, L shoulder higher, no scoliosis PT-OP-G Mobility & Gait Start: 01/28/24 16:40 Freq: Status: Active Protocol: Document 01/31/24 08:58 NM (Rec: 01/31/24 09:58 NM [id number]) OP Gait Assessment Gait Gait Assistance Required: Independent Distance (Feet) 150 Comments Gait Comments Decrease rotation at trunk, less rotation at hips and motion at TL junction R>L PT-OP-J Posture/Palpation/Skin Start: 01/28/24 16:40 Freq: Status: Active Protocol: Document 01/31/24 08:58 NM (Rec: 01/31/24 09:58 NM [id number]) Posture Evaluation Position Standing Head/C-Spine Posture Forward Head L-Spine Posture Increased Lordosis Shoulder Posture (L) Forward,(R) Forward,(L) Elevated Pelvis Posture Anteriorly Tilted,(R) PSIS Posterior Weight Distribution Balanced Knee Posture (L) Genu Valgus,(R) Genu Valgus Ankle/Foot Posture (L) Neutral,(R) Neutral Palpation Assessment Location lumbar spine Palpation Details Mild tenderness at lower lumbar spine and B SIJ/PSIS R> L; TL junction Mild tenderness at lumbar paraspinals PT-OP-K Range of Motion Start: 01/28/24 16:40 Freq: Status: Active Protocol: Document 01/31/24 08:58 NM (Rec: 01/31/24 09:46 NM [id number]) Lumbar Spine Range of Motion Lumbar Spine Active Percentage Flexion 100 Extension 100 Rotation Left 75 Rotation Right 100 Lateral Flexion Left 100 Lateral Flexion Right 100 Comments + : ext dmitry at TL Junction, pain LF B, tape measure: Hip Goniometric Range of Motion Hip Right Extension 6 Internal Rotation 30 External Rotation 28 Comments Hip ext and hip IR/ER reproduces pinching in low back at TL junction Left Extension 10 Internal Rotation 40 External Rotation 40 PT-OP-L Special Tests Start: 01/28/24 16:40 Freq: Status: Active Protocol: Document 01/31/24 08:58 NM (Rec: 01/31/24 09:46 NM [id number]) Special Tests Lumbar Spine Special Tests Burnette/quadrant Test Results + Comments no radicular; local 3D pain PT-OP-M Strength Start: 01/28/24 16:40 Freq: Status: Active Protocol: Document 01/31/24 08:58 NM (Rec: 01/31/24 09:46 NM [id number]) Trunk Strength Trunk Manual Muscle Testing Flexion 4 Good Extension 4 Good Rotation Left 4+ Good+ Rotation Right 4+ Good+ Lateral Flexion Left 4+ Good+ Lateral Flexion Right 4+ Good+ Comments No pain reproduced with resisted testing; see plank and flexion resisted test for flex/ext strength Hip Strength Hip Manual Muscle Testing Right Flexion (L2) 4- Good- Extension (S1) 4 Good Abduction 4 Good Adduction 4+ Good+ External Rotation 4- Good- Internal Rotation 4- Good- Comments reproduced with hip ext Left Flexion (L2) 4- Good- Extension (S1) 4 Good Abduction 4 Good Adduction 4+ Good+ External Rotation 4- Good- Internal Rotation 4- Good- Knee Strength Knee Manual Muscle Testing Right Flexion (S2) 4+ Good+ Extension (L3) 4+ Good+ Left Flexion (S2) 4+ Good+ Extension (L3) 4+ Good+ PT-OP-Q Treatments Start: 01/28/24 16:40 Freq: Status: Active Protocol: Document 02/02/24 07:27 NM (Rec: 02/02/24 08:17 NM [id number]) Therapeutic Exercises Supine Exercises figure 4 stretch Supine Exercise Name 1. with 90 hip flex, 2. with rotation Side bilateral Reps/Minutes 1.60, 2. 5 ea direction Comments monitored for pain, good stretch reported Standing Exercises hip hike Standing Exercise Name QL strengthening- HEP Side bilateral Equipment Used 2 finger support on counter for balance Reps/Minutes 10 ea Other Exercises spinal mobility Other Exercise Name HEP -1. cat camel, 2. hip swivel, 3. thread needle Side bilateral Equipment Used segmental Reps/Minutes 1. 10 ea, 2. 10 ea side, 3. 5 ea side Comments pain free 1/2 kneel Other Exercise Name HEP - 1. hip flexor, 2. w/ hip IR Side bilateral Equipment Used mat on floor Reps/Minutes 60 ea Comments with ppt; pain free quadruped Other Exercise Name HEP review: firehydrant Side bilateral Resistance level 2 band at thighs -band added to HEP, no updated HO Reps/Minutes 10 ea Comments neutral spine; L more challenging Manual Therapy Treatment Consent Patient gave verbal consent for manual Yes treatment Soft Tissue Mobilization BLE Body Location hip flexors, TFL, QL and iliopsoas Mobilization Type Rolling,Strumming,Sustained Pressure Intensity/Depth Moderate Body Position Hooklying Comments Monitored for pain lumbar spine Body Location paraspinals, QL Mobilization Type Rolling,Strumming,Sustained Pressure Intensity/Depth Moderate Body Position Prone Comments Pillow under hips. Monitored for pain. Increased tightness and mild tenderness over paraspinals and QL, reduced with soft tissue mobilization Joint Mobilizations lumbar spine Joint T10-L5, PSIS Direction PA Grade II Body Position Prone Reps/Duration 2x10 ea Comments Pillow under hips for comfort, monitored for pain PT-OP-T Assessment and Plan Start: 01/28/24 16:40 Freq: Status: Active Protocol: Document 02/02/24 07:27 NM (Rec: 02/02/24 08:17 NM [id number]) Physical Therapy Assessment Goals Four Impairment pain with lifting Short Term Goal (STG) Pt will be educated on abdominal bracing and breathwork management in order to improve ability to perform lifting ADLs at home STG Duration 4 weeks [employer] Goal (LTG) Pt will be able to perform at least 3/5 lifts from floor without increase in low back pain or compensation LTG Duration 12 weeks Three Impairment R hip mobility limited [facility] Goal (LTG) Pt will improve R hip IR and ER to at least 35 deg and B hip ext to at least 10 deg without increase in pain symptoms in order to demonstrate improvement in trunk movement during gait and exercise LTG Duration 12 weeks Two Impairment plank 26 with increased instability and pain in low back Short Term Goal (STG) Pt will be able to perform plank for at least 30 seconds with minimal compensations or signs of instability at trunk and no increase in back pain to demonstrate improved trunk strength for lifting and carrying ADLs STG Duration 8 weeks [facility] Goal (LTG) Pt will be able to perform plank for at least 1 minute with minimal compensations or signs of instability at trunk and no increase in back pain to demonstrate improved trunk strength for lifting and carrying ADLs LTG Duration 12 weeks One Impairment not performing HEP Short Term Goal (STG) Pt will report compliance with HEP at least 3x/wk in order to maximize progression with PT and transition to maintenance program upon discharge STG Duration 6 weeks [employer] Goal (LTG) Pt will report return to exercise at least 3x/wk ( lifting, HIIT, yoga, running, etc) with back pain <3/10 with activity LTG Duration 12 weeks Assessment Summary Assessment Pt responds well to gentle stretching and spinal mobility in quadruped and half kneel. Reports reduction in tightness symptoms. Trialed spinal mobilizations for pain management and to improve mobility, especially at limited TL junction and PSIS. Progressed to resisted firehydrant, able to maintain neutral spine and abdominal bracing without compensations but L side more challenging for pt. Initiated gentle strengthening of QL/lumbar paraspinals to promote stability at spine within new muscle length following flexibility training. Pt would continue to benefit from skilled PT for flexibility and progressive Physical Therapy Plan Frequency and Duration Frequency of Treatment 1-2x/wk Duration of treatment (weeks) 12 Plan of Care Start Date 01/31/24 Plan of Care End Date 04/28/24 Therapeutic Interventions Therapeutic Interventions Balance Training,Gait Training ,Home Exercise Program,Joint Mobilizations,Manual Therapy, Neuromuscular Re-education, Orthotic/Prosthetic Management ,Patient/Caregiver Education, Self-Care/Home Management, Sensory Integration,Soft Tissue Mobilization,Taping, Therapeutic Activities, Therapeutic Exercises, Vestibular Rehabilitation Modalities Cold Pack/Ice Massage,Electric Stimulation,Hot Packs, Traction- Mechanical, Ultrasound Other Therapeutic Interventions pelvic realignment Trigger point treatment Next Visit Focus/Plan Next Note Type Treatment Note Next Visit Plan limited HEP- progress ea session as magnus Trial Z sit. QL strengthening, single leg bridge. Progress hip mobility and into extension. hip stretching. breathwork management. Supine > sitting core bracing. Progress to pallof, eventually progress to lift and rotation . Hip hinge mechanics, lifting , and ROM. Teach self STM. Progress into carries and lifting. In future, can trial HIIT or circuit Manual: STM to back and hips. R Hip mobilizations (IR/ER and ext, L hip ext), spine mobilizations as needed and tolerated
--- NOTE | 2024-02-15 15:45 | PT.OTN ---
Current Diagnoses Stiffness of right hip, not elsewhere classified (02/15/24) Stiffness of left hip, not elsewhere classified (02/15/24) Stiffness of other specified joint, not elsewhere classified (02/15/24) Low back pain, unspecified (02/15/24) Other lack of coordination (02/15/24) Weakness (02/15/24) Physical Therapy Treatment Note PT-OP-A Visit Information Start: 01/28/24 16:40 Freq: Status: Active Protocol: Document 02/15/24 13:49 NM (Rec: 02/15/24 14:33 NM [id number]) Out-Patient Physical Therapy Visit Information Visit Information Visit Type Treatment Note Visit Note 12 visits incl eval/year Visit Start Time 13:49 Visit Stop Time 14:30 Visit Number 04/26 Evaluation Information Evaluation Date 01/31/24 PT-OP-B Current Condition Start: 01/28/24 16:40 Freq: Status: Active Protocol: Document 01/31/24 08:58 NM (Rec: 01/31/24 09:46 NM [id number]) Current Condition History of Current Condition Onset Date September 2023 Current Complaints pain History of Current Condition Pt reports pain back, R>L. She states it began in September 2023, thinks due to overuse, no specific event or trigger. Began with back spasms and tightness. She reprots that had to get a back brace to assist with sitting and doing ADLs/housework for about 1 week, on-off. In end of October, re-occured following a light yoga routine , reports got the spasms and tightness again. When in pain, pt has to lie down and wear a brace. Has gone to a chiropractor on-off, which has helped but not resolved the issues; was going to chiropractor for her neck then transitioned her to back. She likes to lift weights, run, play basketball; has had to taper her activity quite a bit . Pain is primarily in the low back, worse with HS stretch in sitting and deep squat/hip flexion. Has not been taking a muscle relaxer; prn advil. Pt reports that in highschool, she injured her back while lifting on R side; 7-8 years ago, reached from pull below feel level to lift child from pool. No numbness or tingling into BLE, no changes. Has 5 kids, youngest kid born in 2019. When had epidural with last kid, hard to get epidural in, lots of pain in R leg; following, RLE took longer to recover. No c-sections. Hips are tight, R>L, and painful. Current Functional Impairments (Reported) Functional Limitations- ADL's housework Functional Limitations- Work/School driving lifting Functional Limitations- Other yoga: prn stretching, not a great stretcher weight liftinx/wk (youtube ) - HIIT w/ dumbbells 8-15# db - unable to deadlift and squat, minimal lunges rest/light day 1-3 mi walk runnin mi (2-4 mi), does not stop during but afterwards PT-OP-C Subjective Start: 01/28/24 16:40 Freq: Status: Active Protocol: Document 02/15/24 13:49 NM (Rec: 02/15/24 14:33 NM [id number]) OP-PT Subjective Patient Comments Patient Comments Pt reports back is less tight. Tyler good after riding in car after road trip, normally aggravating. Has not been doing normal activities. She reports stiffness in morning, does exercises in morning; movement helps with stiffness in am. She reports that she ran 3.5 mi, reports back was tight following running (did ice, rest). PT-OP-E Functional Tests Start: 01/28/24 16:40 Freq: Status: Active Protocol: Document 01/31/24 08:58 NM (Rec: 01/31/24 09:46 NM [id number]) Functional Tests Other flexion test Name of Test arms across chest Score 10 Comment challenging, no pain plank Name of Test full plank for time Score 26 Comment feels tightness in lower back PT-OP-F Manual Assessment Start: 01/28/24 16:40 Freq: Status: Active Protocol: Document 01/31/24 08:58 NM (Rec: 01/31/24 09:46 NM [id number]) Manual Assessments Soft Tissue Assessment Soft Tissue Mobility Assessment Tightness R>L and hypertrophy of lumbar paraspinals L>R Joint Mobility Assessment Joint Mobility Assessment R rot inward, post rot, L shoulder higher, no scoliosis PT-OP-G Mobility & Gait Start: 01/28/24 16:40 Freq: Status: Active Protocol: Document 01/31/24 08:58 NM (Rec: 01/31/24 09:58 NM [id number]) OP Gait Assessment Gait Gait Assistance Required: Independent Distance (Feet) 150 Comments Gait Comments Decrease rotation at trunk, less rotation at hips and motion at TL junction R>L PT-OP-J Posture/Palpation/Skin Start: 01/28/24 16:40 Freq: Status: Active Protocol: Document 01/31/24 08:58 NM (Rec: 01/31/24 09:58 NM [id number]) Posture Evaluation Position Standing Head/C-Spine Posture Forward Head L-Spine Posture Increased Lordosis Shoulder Posture (L) Forward,(R) Forward,(L) Elevated Pelvis Posture Anteriorly Tilted,(R) PSIS Posterior Weight Distribution Balanced Knee Posture (L) Genu Valgus,(R) Genu Valgus Ankle/Foot Posture (L) Neutral,(R) Neutral Palpation Assessment Location lumbar spine Palpation Details Mild tenderness at lower lumbar spine and B SIJ/PSIS R> L; TL junction Mild tenderness at lumbar paraspinals PT-OP-K Range of Motion Start: 01/28/24 16:40 Freq: Status: Active Protocol: Document 01/31/24 08:58 NM (Rec: 01/31/24 09:46 NM [id number]) Lumbar Spine Range of Motion Lumbar Spine Active Percentage Flexion 100 Extension 100 Rotation Left 75 Rotation Right 100 Lateral Flexion Left 100 Lateral Flexion Right 100 Comments + : ext dmitry at [place], pain LF B, tape measure: Hip Goniometric Range of Motion Hip Right Extension 6 Internal Rotation 30 External Rotation 28 Comments Hip ext and hip IR/ER reproduces pinching in low back at TL junction Left Extension 10 Internal Rotation 40 External Rotation 40 PT-OP-L Special Tests Start: 01/28/24 16:40 Freq: Status: Active Protocol: Document 01/31/24 08:58 NM (Rec: 01/31/24 09:46 NM [id number]) Special Tests Lumbar Spine Special Tests Burnette/quadrant Test Results + Comments no radicular; local 3D pain PT-OP-M Strength Start: 01/28/24 16:40 Freq: Status: Active Protocol: Document 01/31/24 08:58 NM (Rec: 01/31/24 09:46 NM [id number]) Trunk Strength Trunk Manual Muscle Testing Flexion 4 Good Extension 4 Good Rotation Left 4+ Good+ Rotation Right 4+ Good+ Lateral Flexion Left 4+ Good+ Lateral Flexion Right 4+ Good+ Comments No pain reproduced with resisted testing; see plank and flexion resisted test for flex/ext strength Hip Strength Hip Manual Muscle Testing Right Flexion (L2) 4- Good- Extension (S1) 4 Good Abduction 4 Good Adduction 4+ Good+ External Rotation 4- Good- Internal Rotation 4- Good- Comments reproduced with hip ext Left Flexion (L2) 4- Good- Extension (S1) 4 Good Abduction 4 Good Adduction 4+ Good+ External Rotation 4- Good- Internal Rotation 4- Good- Knee Strength Knee Manual Muscle Testing Right Flexion (S2) 4+ Good+ Extension (L3) 4+ Good+ Left Flexion (S2) 4+ Good+ Extension (L3) 4+ Good+ PT-OP-Q Treatments Start: 01/28/24 16:40 Freq: Status: Active Protocol: Document 02/15/24 13:49 NM (Rec: 02/15/24 14:33 NM [id number]) Therapeutic Exercises Supine Exercises TrA activation Supine Exercise Name 1. abdominal drawing up and in manuever, 2. marching Reps/Minutes 1. 10, 2. 10 ea non-alt Comments cued for form, breathwork single leg bridge Side bilateral Reps/Minutes 8 Comments cued set up Prone Exercises hip extension Prone Exercise Name 1. LE only, 2. opp arm/legs Side bilateral Equipment Used pillow under hips for support Reps/Minutes 10 ea Comments no pinching feeling reproduced Standing Exercises resisted stepping Standing Exercise Name side steps Side bilateral Resistance level 3 band at ankles Equipment Used squat position Reps/Minutes 3x10 ft ea direction Comments cued more ppt to limit hyperext low back; core bracing Other Exercises hip mobility Other Exercise Name Z sit (90/90): 1. w/ trunk flex mobility (ER/flex), 2. AROM Side bilateral Reps/Minutes 1. 5 ea (2 min time), 2. 5 ea Comments L tighter, cues to shift position for comfort, less wt shift IR AROM Manual Therapy Treatment Consent Patient gave verbal consent for manual Yes treatment Soft Tissue Mobilization BLE Body Location QL and iliopsoas, glutes, HS Mobilization Type Rolling,Strumming,Sustained Pressure Intensity/Depth Moderate Body Position Prone Comments Monitored for pain lumbar spine Body Location paraspinals, QL Mobilization Type Rolling,Strumming,Sustained Pressure Intensity/Depth Moderate Body Position Prone Comments Pillow under hips. Monitored for pain. Less tightness and mild tenderness over paraspinals and QL, reduced with soft tissue mobilization PT-OP-T Assessment and Plan Start: 01/28/24 16:40 Freq: Status: Active Protocol: Document 02/15/24 13:49 NM (Rec: 02/15/24 14:33 NM [id number]) Physical Therapy Assessment Goals Four Impairment pain with lifting Short Term Goal (STG) Pt will be educated on abdominal bracing and breathwork management in order to improve ability to perform lifting ADLs at home 02/15/24: pt educated on abdominal bracing and breathwork STG Duration 4 weeks MET Residential Goal (LTG) Pt will be able to perform at least 3/5 lifts from floor without increase in low back pain or compensation LTG Duration 12 weeks Three Impairment R hip mobility limited Residential Goal (LTG) Pt will improve R hip IR and ER to at least 35 deg and B hip ext to at least 10 deg without increase in pain symptoms in order to demonstrate improvement in trunk movement during gait and exercise LTG Duration 12 weeks Two Impairment plank 26 with increased instability and pain in low back Short Term Goal (STG) Pt will be able to perform plank for at least 30 seconds with minimal compensations or signs of instability at trunk and no increase in back pain to demonstrate improved trunk strength for lifting and carrying ADLs STG Duration 8 weeks Residential Goal (LTG) Pt will be able to perform plank for at least 1 minute with minimal compensations or signs of instability at trunk and no increase in back pain to demonstrate improved trunk strength for lifting and carrying ADLs LTG Duration 12 weeks One Impairment not performing HEP Short Term Goal (STG) Pt will report compliance with HEP at least 3x/wk in order to maximize progression with PT and transition to maintenance program upon discharge STG Duration 6 weeks Residential Goal (LTG) Pt will report return to exercise at least 3x/wk ( lifting, HIIT, yoga, running, etc) with back pain <3/10 with activity LTG Duration 12 weeks Assessment Summary Assessment Pt continues to respond well to progressions with posterior chain strengthening and abdominal bracing. Able to maintain stable lumbopelvis especially with bridges. Better tolerance for prone today. Initiated core bracing and hip mobility at end range with AROM. L side is tighter than R side, weaker as well. Fewer reports of back pain or tightness with activity. Pt would continue to benefit from skilled PT for progressive strengthening and flexibility to improve pt ability to return to running and lifting. Physical Therapy Plan Frequency and Duration Frequency of Treatment 1-2x/wk Duration of treatment (weeks) 12 Plan of Care Start Date 01/31/24 Plan of Care End Date 04/28/24 Therapeutic Interventions Therapeutic Interventions Balance Training,Gait Training ,Home Exercise Program,Joint Mobilizations,Manual Therapy, Neuromuscular Re-education, Orthotic/Prosthetic Management ,Patient/Caregiver Education, Self-Care/Home Management, Sensory Integration,Soft Tissue Mobilization,Taping, Therapeutic Activities, Therapeutic Exercises, Vestibular Rehabilitation Modalities Cold Pack/Ice Massage,Electric Stimulation,Hot Packs, Traction- Mechanical, Ultrasound Other Therapeutic Interventions pelvic realignment Trigger point treatment Next Visit Focus/Plan Next Note Type Treatment Note Next Visit Plan limited HEP- progress ea session as magnus QL strengthening w/ carries, sidelying on plinth (beached seal). Wall RDL (single leg w / hinge). sidelying QL stretch over ball and strengthening. hip stretching. breathwork management. Supine > sitting core bracing on ball. Progress to pallof, eventually progress to lift and rotation. Hip hinge mechanics, lifting, and ROM. Teach self STM. Progress into carries and lifting. In future, can trial HIIT or circuit Manual: STM to back and hips. R Hip mobilizations (IR/ER and ext, L hip ext), spine mobilizations as needed and tolerated
--- NOTE | 2024-02-22 16:24 | PT.OTN ---
Current Diagnoses Stiffness of right hip, not elsewhere classified (02/22/24) Stiffness of left hip, not elsewhere classified (02/22/24) Stiffness of other specified joint, not elsewhere classified (02/22/24) Low back pain, unspecified (02/22/24) Other lack of coordination (02/22/24) Weakness (02/22/24) Physical Therapy Treatment Note PT-OP-A Visit Information Start: 01/28/24 16:40 Freq: Status: Active Protocol: Document 02/22/24 11:27 SW (Rec: 02/22/24 12:40 SW [id number]) Out-Patient Physical Therapy Visit Information Visit Information Visit Type Treatment Note Visit Note 12 visits incl eval/year Visit Start Time 11:31 Visit Stop Time 12:11 Visit Number 05/27 Number of TABLE TENDER SLUDGE Visits 1 PT-OP-B Current Condition Start: 01/28/24 16:40 Freq: Status: Active Protocol: Document 01/31/24 08:58 NM (Rec: 01/31/24 09:46 NM [id number]) Current Condition History of Current Condition Onset Date September 2023 Current Complaints pain History of Current Condition Pt reports pain back, R>L. She states it began in September 2023, thinks due to overuse, no specific event or trigger. Began with back spasms and tightness. She reprots that had to get a back brace to assist with sitting and doing ADLs/housework for about 1 week, on-off. In end of October, re-occured following a light yoga routine , reports got the spasms and tightness again. When in pain, pt has to lie down and wear a brace. Has gone to a chiropractor on-off, which has helped but not resolved the issues; was going to chiropractor for her neck then transitioned her to back. She likes to lift weights, run, play basketball; has had to taper her activity quite a bit . Pain is primarily in the low back, worse with HS stretch in sitting and deep squat/hip flexion. Has not been taking a muscle relaxer; prn advil. Pt reports that in highschool, she injured her back while lifting on R side; 7-8 years ago, reached from pull below feel level to lift child from pool. No numbness or tingling into BLE, no changes. Has 5 kids, youngest kid born in 2019. When had epidural with last kid, hard to get epidural in, lots of pain in R leg; following, RLE took longer to recover. No c-sections. Hips are tight, R>L, and painful. Current Functional Impairments (Reported) Functional Limitations- ADL's housework Functional Limitations- Work/School driving lifting Functional Limitations- Other yoga: prn stretching, not a great stretcher weight liftinx/wk (youtube ) - HIIT w/ dumbbells 8-15# db - unable to deadlift and squat, minimal lunges rest/light day 1-3 mi walk runnin mi (2-4 mi), does not stop during but afterwards PT-OP-C Subjective Start: 01/28/24 16:40 Freq: Status: Active Protocol: Document 02/22/24 11:27 SW (Rec: 02/22/24 12:40 SW [id number]) OP-PT Subjective Patient Comments Patient Comments Pt reports feeling looser, pain level minimal, decreased. PT-OP-E Functional Tests Start: 01/28/24 16:40 Freq: Status: Active Protocol: Document 01/31/24 08:58 NM (Rec: 01/31/24 09:46 NM [id number]) Functional Tests Other flexion test Name of Test arms across chest Score 10 Comment challenging, no pain plank Name of Test full plank for time Score 26 Comment feels tightness in lower back PT-OP-F Manual Assessment Start: 01/28/24 16:40 Freq: Status: Active Protocol: Document 01/31/24 08:58 NM (Rec: 01/31/24 09:46 NM [id number]) Manual Assessments Soft Tissue Assessment Soft Tissue Mobility Assessment Tightness R>L and hypertrophy of lumbar paraspinals L>R Joint Mobility Assessment Joint Mobility Assessment R rot inward, post rot, L shoulder higher, no scoliosis PT-OP-G Mobility & Gait Start: 01/28/24 16:40 Freq: Status: Active Protocol: Document 01/31/24 08:58 NM (Rec: 01/31/24 09:58 NM [id number]) OP Gait Assessment Gait Gait Assistance Required: Independent Distance (Feet) 150 Comments Gait Comments Decrease rotation at trunk, less rotation at hips and motion at TL junction R>L PT-OP-J Posture/Palpation/Skin Start: 01/28/24 16:40 Freq: Status: Active Protocol: Document 01/31/24 08:58 NM (Rec: 01/31/24 09:58 NM [id number]) Posture Evaluation Position Standing Head/C-Spine Posture Forward Head L-Spine Posture Increased Lordosis Shoulder Posture (L) Forward,(R) Forward,(L) Elevated Pelvis Posture Anteriorly Tilted,(R) PSIS Posterior Weight Distribution Balanced Knee Posture (L) Genu Valgus,(R) Genu Valgus Ankle/Foot Posture (L) Neutral,(R) Neutral Palpation Assessment Location lumbar spine Palpation Details Mild tenderness at lower lumbar spine and B SIJ/PSIS R> L; TL junction Mild tenderness at lumbar paraspinals PT-OP-K Range of Motion Start: 01/28/24 16:40 Freq: Status: Active Protocol: Document 01/31/24 08:58 NM (Rec: 01/31/24 09:46 NM [id number]) Lumbar Spine Range of Motion Lumbar Spine Active Percentage Flexion 100 Extension 100 Rotation Left 75 Rotation Right 100 Lateral Flexion Left 100 Lateral Flexion Right 100 Comments + : ext dmitry at [place], pain LF B, tape measure: Hip Goniometric Range of Motion Hip Right Extension 6 Internal Rotation 30 External Rotation 28 Comments Hip ext and hip IR/ER reproduces pinching in low back at TL junction Left Extension 10 Internal Rotation 40 External Rotation 40 PT-OP-L Special Tests Start: 01/28/24 16:40 Freq: Status: Active Protocol: Document 01/31/24 08:58 NM (Rec: 01/31/24 09:46 NM [id number]) Special Tests Lumbar Spine Special Tests Burnette/quadrant Test Results + Comments no radicular; local 3D pain PT-OP-M Strength Start: 01/28/24 16:40 Freq: Status: Active Protocol: Document 01/31/24 08:58 NM (Rec: 01/31/24 09:46 NM [id number]) Trunk Strength Trunk Manual Muscle Testing Flexion 4 Good Extension 4 Good Rotation Left 4+ Good+ Rotation Right 4+ Good+ Lateral Flexion Left 4+ Good+ Lateral Flexion Right 4+ Good+ Comments No pain reproduced with resisted testing; see plank and flexion resisted test for flex/ext strength Hip Strength Hip Manual Muscle Testing Right Flexion (L2) 4- Good- Extension (S1) 4 Good Abduction 4 Good Adduction 4+ Good+ External Rotation 4- Good- Internal Rotation 4- Good- Comments reproduced with hip ext Left Flexion (L2) 4- Good- Extension (S1) 4 Good Abduction 4 Good Adduction 4+ Good+ External Rotation 4- Good- Internal Rotation 4- Good- Knee Strength Knee Manual Muscle Testing Right Flexion (S2) 4+ Good+ Extension (L3) 4+ Good+ Left Flexion (S2) 4+ Good+ Extension (L3) 4+ Good+ PT-OP-Q Treatments Start: 01/28/24 16:40 Freq: Status: Active Protocol: Document 02/22/24 11:27 SW (Rec: 02/22/24 12:40 [id number]) Therapeutic Exercises Supine Exercises HS stretch Supine Exercise Name HS stretch (issued HEP HO) Side bilateral Equipment Used w/ strap Reps/Minutes 2x30 ea Comments cues for setup, pt education on anatomy, pain free TrA activation Supine Exercise Name 1. Marching 2. Heel slide Reps/Minutes 10 ea Comments reviewed form, breathwork, tactile cues to assess form single leg bridge Side bilateral Reps/Minutes 10 ea Comments cued set up Prone Exercises hip extension Prone Exercise Name 1. LE only, 2. opp arm/legs Side bilateral Equipment Used pillow under hips for support Reps/Minutes 10 ea Comments no pinching feeling reproduced Standing Exercises QL Standing Exercise Name 1. Carries (Issued HEP HO) 2. sidebends Side bilateral Resistance 1. 8# 2. 3# Comments cues for core stabilization, cues for form with side bends resisted stepping Standing Exercise Name side steps Side bilateral Resistance level 3 band at ankles Equipment Used squat position Reps/Minutes 3x10 ft ea direction Comments cued more ppt to limit hyperext low back; core bracing Other Exercises Self STM Other Exercise Name Self STM Equipment Used Tennis ball, wall Comments pt education on trigger points , breath work, pressure, targeted muscles Self-Care/Home Management Treatment Education Patient Education Body Mechanics,Home Exercise Program Other Education Self STM w/ tennis ball, HEP, stretching, Anatomy- QL and Hamstring, origins/insertions, pelvis PT-OP-T Assessment and Plan Start: 01/28/24 16:40 Freq: Status: Active Protocol: Document 02/22/24 11:27 SW (Rec: 02/22/24 12:40 [id number]) Physical Therapy Assessment Goals Four Impairment pain with lifting Short Term Goal (STG) Pt will be educated on abdominal bracing and breathwork management in order to improve ability to perform lifting ADLs at home 02/15/24: pt educated on abdominal bracing and breathwork STG Duration 4 weeks MET [facility] Goal (LTG) Pt will be able to perform at least 3/5 lifts from floor without increase in low back pain or compensation LTG Duration 12 weeks Three Impairment R hip mobility limited [employer] Goal (LTG) Pt will improve R hip IR and ER to at least 35 deg and B hip ext to at least 10 deg without increase in pain symptoms in order to demonstrate improvement in trunk movement during gait and exercise LTG Duration 12 weeks Two Impairment plank 26 with increased instability and pain in low back Short Term Goal (STG) Pt will be able to perform plank for at least 30 seconds with minimal compensations or signs of instability at trunk and no increase in back pain to demonstrate improved trunk strength for lifting and carrying ADLs STG Duration 8 weeks [employer] Goal (LTG) Pt will be able to perform plank for at least 1 minute with minimal compensations or signs of instability at trunk and no increase in back pain to demonstrate improved trunk strength for lifting and carrying ADLs LTG Duration 12 weeks One Impairment not performing HEP Short Term Goal (STG) Pt will report compliance with HEP at least 3x/wk in order to maximize progression with PT and transition to maintenance program upon discharge STG Duration 6 weeks Senior Care Goal (LTG) Pt will report return to exercise at least 3x/wk ( lifting, HIIT, yoga, running, etc) with back pain <3/10 with activity LTG Duration 12 weeks Assessment Summary Assessment Extended time on Hamstring stretch today, pt education on mm origin/insertion and pelvic alignment for increased hamstring stretch and decreased back pain, pt tolerated supine HS stretch well, with no pain, issued HEP HO. Initiated QL stretch over therapy ball, followed up with Unilateral carries for QL strength, pt tolerated well with no increase in pain. Pt tolerated session well today, no increase in symptoms throughout exercises. Physical Therapy Plan Frequency and Duration Frequency of Treatment 1-2x/wk Duration of treatment (weeks) 12 Plan of Care Start Date 01/31/24 Plan of Care End Date 04/28/24 Therapeutic Interventions Therapeutic Interventions Balance Training,Gait Training ,Home Exercise Program,Joint Mobilizations,Manual Therapy, Neuromuscular Re-education, Orthotic/Prosthetic Management ,Patient/Caregiver Education, Self-Care/Home Management, Sensory Integration,Soft Tissue Mobilization,Taping, Therapeutic Activities, Therapeutic Exercises, Vestibular Rehabilitation Modalities Cold Pack/Ice Massage,Electric Stimulation,Hot Packs, Traction- Mechanical, Ultrasound Other Therapeutic Interventions pelvic realignment Trigger point treatment Next Visit Focus/Plan Next Note Type Treatment Note Next Visit Plan limited HEP- progress ea session as magnus QL strengthening w/ carries, sidelying on plinth (beached seal). Wall RDL (single leg w / hinge). sidelying QL stretch over ball and strengthening. hip stretching. breathwork management. Supine > sitting core bracing on ball. Progress to pallof, eventually progress to lift and rotation. Hip hinge mechanics, lifting, and ROM. Teach self STM. Progress into carries and lifting. In future, can trial HIIT or circuit Manual: STM to back and hips. R Hip mobilizations (IR/ER and ext, L hip ext), spine mobilizations as needed and tolerated
--- NOTE | 2024-02-22 16:24 | PT.OTN ---
Current Diagnoses Stiffness of right hip, not elsewhere classified (02/22/24) Stiffness of left hip, not elsewhere classified (02/22/24) Stiffness of other specified joint, not elsewhere classified (02/22/24) Low back pain, unspecified (02/22/24) Other lack of coordination (02/22/24) Weakness (02/22/24) Physical Therapy Treatment Note PT-OP-A Visit Information Start: 01/28/24 16:40 Freq: Status: Active Protocol: Document 02/22/24 11:27 SW (Rec: 02/22/24 12:40 SW [id number]) Out-Patient Physical Therapy Visit Information Visit Information Visit Type Treatment Note Visit Note 12 visits incl eval/year Visit Start Time 11:31 Visit Stop Time 12:11 Visit Number 05/27 Number of RUG SCRATCHER Visits 1 PT-OP-B Current Condition Start: 01/28/24 16:40 Freq: Status: Active Protocol: Document 01/31/24 08:58 NM (Rec: 01/31/24 09:46 NM [id number]) Current Condition History of Current Condition Onset Date September 2023 Current Complaints pain History of Current Condition Pt reports pain back, R>L. She states it began in September 2023, thinks due to overuse, no specific event or trigger. Began with back spasms and tightness. She reprots that had to get a back brace to assist with sitting and doing ADLs/housework for about 1 week, on-off. In end of October, re-occured following a light yoga routine , reports got the spasms and tightness again. When in pain, pt has to lie down and wear a brace. Has gone to a chiropractor on-off, which has helped but not resolved the issues; was going to chiropractor for her neck then transitioned her to back. She likes to lift weights, run, play basketball; has had to taper her activity quite a bit . Pain is primarily in the low back, worse with HS stretch in sitting and deep squat/hip flexion. Has not been taking a muscle relaxer; prn advil. Pt reports that in highschool, she injured her back while lifting on R side; 7-8 years ago, reached from pull below feel level to lift child from pool. No numbness or tingling into BLE, no changes. Has 5 kids, youngest kid born in 2019. When had epidural with last kid, hard to get epidural in, lots of pain in R leg; following, RLE took longer to recover. No c-sections. Hips are tight, R>L, and painful. Current Functional Impairments (Reported) Functional Limitations- ADL's housework Functional Limitations- Work/School driving lifting Functional Limitations- Other yoga: prn stretching, not a great stretcher weight liftinx/wk (youtube ) - HIIT w/ dumbbells 8-15# db - unable to deadlift and squat, minimal lunges rest/light day 1-3 mi walk runnin mi (2-4 mi), does not stop during but afterwards PT-OP-C Subjective Start: 01/28/24 16:40 Freq: Status: Active Protocol: Document 02/22/24 11:27 SW (Rec: 02/22/24 12:40 SW [id number]) OP-PT Subjective Patient Comments Patient Comments Pt reports feeling looser, pain level minimal, decreased. PT-OP-E Functional Tests Start: 01/28/24 16:40 Freq: Status: Active Protocol: Document 01/31/24 08:58 NM (Rec: 01/31/24 09:46 NM [id number]) Functional Tests Other flexion test Name of Test arms across chest Score 10 Comment challenging, no pain plank Name of Test full plank for time Score 26 Comment feels tightness in lower back PT-OP-F Manual Assessment Start: 01/28/24 16:40 Freq: Status: Active Protocol: Document 01/31/24 08:58 NM (Rec: 01/31/24 09:46 NM [id number]) Manual Assessments Soft Tissue Assessment Soft Tissue Mobility Assessment Tightness R>L and hypertrophy of lumbar paraspinals L>R Joint Mobility Assessment Joint Mobility Assessment R rot inward, post rot, L shoulder higher, no scoliosis PT-OP-G Mobility & Gait Start: 01/28/24 16:40 Freq: Status: Active Protocol: Document 01/31/24 08:58 NM (Rec: 01/31/24 09:58 NM [id number]) OP Gait Assessment Gait Gait Assistance Required: Independent Distance (Feet) 150 Comments Gait Comments Decrease rotation at trunk, less rotation at hips and motion at TL junction R>L PT-OP-J Posture/Palpation/Skin Start: 01/28/24 16:40 Freq: Status: Active Protocol: Document 01/31/24 08:58 NM (Rec: 01/31/24 09:58 NM [id number]) Posture Evaluation Position Standing Head/C-Spine Posture Forward Head L-Spine Posture Increased Lordosis Shoulder Posture (L) Forward,(R) Forward,(L) Elevated Pelvis Posture Anteriorly Tilted,(R) PSIS Posterior Weight Distribution Balanced Knee Posture (L) Genu Valgus,(R) Genu Valgus Ankle/Foot Posture (L) Neutral,(R) Neutral Palpation Assessment Location lumbar spine Palpation Details Mild tenderness at lower lumbar spine and B SIJ/PSIS R> L; TL junction Mild tenderness at lumbar paraspinals PT-OP-K Range of Motion Start: 01/28/24 16:40 Freq: Status: Active Protocol: Document 01/31/24 08:58 NM (Rec: 01/31/24 09:46 NM [id number]) Lumbar Spine Range of Motion Lumbar Spine Active Percentage Flexion 100 Extension 100 Rotation Left 75 Rotation Right 100 Lateral Flexion Left 100 Lateral Flexion Right 100 Comments + : ext dmitry at TL Junction, pain LF B, tape measure: Hip Goniometric Range of Motion Hip Right Extension 6 Internal Rotation 30 External Rotation 28 Comments Hip ext and hip IR/ER reproduces pinching in low back at TL junction Left Extension 10 Internal Rotation 40 External Rotation 40 PT-OP-L Special Tests Start: 01/28/24 16:40 Freq: Status: Active Protocol: Document 01/31/24 08:58 NM (Rec: 01/31/24 09:46 NM [id number]) Special Tests Lumbar Spine Special Tests Burnette/quadrant Test Results + Comments no radicular; local 3D pain PT-OP-M Strength Start: 01/28/24 16:40 Freq: Status: Active Protocol: Document 01/31/24 08:58 NM (Rec: 01/31/24 09:46 NM [id number]) Trunk Strength Trunk Manual Muscle Testing Flexion 4 Good Extension 4 Good Rotation Left 4+ Good+ Rotation Right 4+ Good+ Lateral Flexion Left 4+ Good+ Lateral Flexion Right 4+ Good+ Comments No pain reproduced with resisted testing; see plank and flexion resisted test for flex/ext strength Hip Strength Hip Manual Muscle Testing Right Flexion (L2) 4- Good- Extension (S1) 4 Good Abduction 4 Good Adduction 4+ Good+ External Rotation 4- Good- Internal Rotation 4- Good- Comments reproduced with hip ext Left Flexion (L2) 4- Good- Extension (S1) 4 Good Abduction 4 Good Adduction 4+ Good+ External Rotation 4- Good- Internal Rotation 4- Good- Knee Strength Knee Manual Muscle Testing Right Flexion (S2) 4+ Good+ Extension (L3) 4+ Good+ Left Flexion (S2) 4+ Good+ Extension (L3) 4+ Good+ PT-OP-Q Treatments Start: 01/28/24 16:40 Freq: Status: Active Protocol: Document 02/22/24 11:27 SW (Rec: 02/22/24 12:40 [id number]) Therapeutic Exercises Supine Exercises HS stretch Supine Exercise Name HS stretch (issued HEP HO) Side bilateral Equipment Used w/ strap Reps/Minutes 2x30 ea Comments cues for setup, pt education on anatomy, pain free TrA activation Supine Exercise Name 1. Marching 2. Heel slide Reps/Minutes 10 ea Comments reviewed form, breathwork, tactile cues to assess form single leg bridge Side bilateral Reps/Minutes 10 ea Comments cued set up Prone Exercises hip extension Prone Exercise Name 1. LE only, 2. opp arm/legs Side bilateral Equipment Used pillow under hips for support Reps/Minutes 10 ea Comments no pinching feeling reproduced Standing Exercises QL Standing Exercise Name 1. Carries (Issued HEP HO) 2. sidebends Side bilateral Resistance 1. 8# 2. 3# Comments cues for core stabilization, cues for form with side bends resisted stepping Standing Exercise Name side steps Side bilateral Resistance level 3 band at ankles Equipment Used squat position Reps/Minutes 3x10 ft ea direction Comments cued more ppt to limit hyperext low back; core bracing Other Exercises Self STM Other Exercise Name Self STM Equipment Used Tennis ball, wall Comments pt education on trigger points , breath work, pressure, targeted muscles Self-Care/Home Management Treatment Education Patient Education Body Mechanics,Home Exercise Program Other Education Self STM w/ tennis ball, HEP, stretching, Anatomy- QL and Hamstring, origins/insertions, pelvis PT-OP-T Assessment and Plan Start: 01/28/24 16:40 Freq: Status: Active Protocol: Document 02/22/24 11:27 SW (Rec: 02/22/24 12:40 [id number]) Physical Therapy Assessment Goals Four Impairment pain with lifting Short Term Goal (STG) Pt will be educated on abdominal bracing and breathwork management in order to improve ability to perform lifting ADLs at home 02/15/24: pt educated on abdominal bracing and breathwork STG Duration 4 weeks MET Mcfp Goal (LTG) Pt will be able to perform at least 3/5 lifts from floor without increase in low back pain or compensation LTG Duration 12 weeks Three Impairment R hip mobility limited Metal Roaster Goal (LTG) Pt will improve R hip IR and ER to at least 35 deg and B hip ext to at least 10 deg without increase in pain symptoms in order to demonstrate improvement in trunk movement during gait and exercise LTG Duration 12 weeks Two Impairment plank 26 with increased instability and pain in low back Short Term Goal (STG) Pt will be able to perform plank for at least 30 seconds with minimal compensations or signs of instability at trunk and no increase in back pain to demonstrate improved trunk strength for lifting and carrying ADLs STG Duration 8 weeks Metal Roaster Goal (LTG) Pt will be able to perform plank for at least 1 minute with minimal compensations or signs of instability at trunk and no increase in back pain to demonstrate improved trunk strength for lifting and carrying ADLs LTG Duration 12 weeks One Impairment not performing HEP Short Term Goal (STG) Pt will report compliance with HEP at least 3x/wk in order to maximize progression with PT and transition to maintenance program upon discharge STG Duration 6 weeks Mcfp Goal (LTG) Pt will report return to exercise at least 3x/wk ( lifting, HIIT, yoga, running, etc) with back pain <3/10 with activity LTG Duration 12 weeks Assessment Summary Assessment Extended time on Hamstring stretch today, pt education on mm origin/insertion and pelvic alignment for increased hamstring stretch and decreased back pain, pt tolerated supine HS stretch well, with no pain, issued HEP HO. Initiated QL stretch over therapy ball, followed up with Unilateral carries for QL strength, pt tolerated well with no increase in pain. Pt tolerated session well today, no increase in symptoms throughout exercises. Physical Therapy Plan Frequency and Duration Frequency of Treatment 1-2x/wk Duration of treatment (weeks) 12 Plan of Care Start Date 01/31/24 Plan of Care End Date 04/28/24 Therapeutic Interventions Therapeutic Interventions Balance Training,Gait Training ,Home Exercise Program,Joint Mobilizations,Manual Therapy, Neuromuscular Re-education, Orthotic/Prosthetic Management ,Patient/Caregiver Education, Self-Care/Home Management, Sensory Integration,Soft Tissue Mobilization,Taping, Therapeutic Activities, Therapeutic Exercises, Vestibular Rehabilitation Modalities Cold Pack/Ice Massage,Electric Stimulation,Hot Packs, Traction- Mechanical, Ultrasound Other Therapeutic Interventions pelvic realignment Trigger point treatment Next Visit Focus/Plan Next Note Type Treatment Note Next Visit Plan limited HEP- progress ea session as magnus QL strengthening w/ carries, sidelying on plinth (beached seal). Wall RDL (single leg w / hinge). sidelying QL stretch over ball and strengthening. hip stretching. breathwork management. Supine > sitting core bracing on ball. Progress to pallof, eventually progress to lift and rotation. Hip hinge mechanics, lifting, and ROM. Teach self STM. Progress into carries and lifting. In future, can trial HIIT or circuit Manual: STM to back and hips. R Hip mobilizations (IR/ER and ext, L hip ext), spine mobilizations as needed and tolerated
--- NOTE | 2024-02-29 08:16 | PT.OTN ---
Current Diagnoses Stiffness of right hip, not elsewhere classified (02/29/24) Stiffness of left hip, not elsewhere classified (02/29/24) Stiffness of other specified joint, not elsewhere classified (02/29/24) Low back pain, unspecified (02/29/24) Other lack of coordination (02/29/24) Weakness (02/29/24) Physical Therapy Treatment Note PT-OP-A Visit Information Start: 01/28/24 16:40 Freq: Status: Active Protocol: Document 02/29/24 07:28 NM (Rec: 02/29/24 08:16 NM [id number]) Out-Patient Physical Therapy Visit Information Visit Information Visit Type Treatment Note Visit Note 12 visits incl eval/year Visit Start Time 07:34 Visit Stop Time 08:15 Visit Number 06/26 (03/29 for 2024) Number of SKIN TOGGLER Visits 0 Evaluation Information Evaluation Date 01/31/24 PT-OP-B Current Condition Start: 01/28/24 16:40 Freq: Status: Active Protocol: Document 01/31/24 08:58 NM (Rec: 01/31/24 09:46 NM [id number]) Current Condition History of Current Condition Onset Date September 2023 Current Complaints pain History of Current Condition Pt reports pain back, R>L. She states it began in September 2023, thinks due to overuse, no specific event or trigger. Began with back spasms and tightness. She reprots that had to get a back brace to assist with sitting and doing ADLs/housework for about 1 week, on-off. In end of October, re-occured following a light yoga routine , reports got the spasms and tightness again. When in pain, pt has to lie down and wear a brace. Has gone to a chiropractor on-off, which has helped but not resolved the issues; was going to chiropractor for her neck then transitioned her to back. She likes to lift weights, run, play basketball; has had to taper her activity quite a bit . Pain is primarily in the low back, worse with HS stretch in sitting and deep squat/hip flexion. Has not been taking a muscle relaxer; prn advil. Pt reports that in highschool, she injured her back while lifting on R side; 7-8 years ago, reached from pull below feel level to lift child from pool. No numbness or tingling into BLE, no changes. Has 5 kids, youngest kid born in 2019. When had epidural with last kid, hard to get epidural in, lots of pain in R leg; following, RLE took longer to recover. No c-sections. Hips are tight, R>L, and painful. Current Functional Impairments (Reported) Functional Limitations- ADL's housework Functional Limitations- Work/School driving lifting Functional Limitations- Other yoga: prn stretching, not a great stretcher weight liftinx/wk (youtube ) - HIIT w/ dumbbells 8-15# db - unable to deadlift and squat, minimal lunges rest/light day 1-3 mi walk runnin mi (2-4 mi), does not stop during but afterwards PT-OP-C Subjective Start: 01/28/24 16:40 Freq: Status: Active Protocol: Document 02/29/24 07:28 NM (Rec: 02/29/24 08:16 NM [id number]) OP-PT Subjective Patient Comments Patient Comments Pt reports that she was doing pretty good but states that she ran 2x and did UE strength training. However, Wednesday she was working and sitting in a rotated position, feels pinched in the lower back again; reports tried stretches etc on R side and cannot get it to unpinch near tailbone. About 3/10 PT-OP-E Functional Tests Start: 01/28/24 16:40 Freq: Status: Active Protocol: Document 01/31/24 08:58 NM (Rec: 01/31/24 09:46 NM [id number]) Functional Tests Other flexion test Name of Test arms across chest Score 10 Comment challenging, no pain plank Name of Test full plank for time Score 26 Comment feels tightness in lower back PT-OP-F Manual Assessment Start: 01/28/24 16:40 Freq: Status: Active Protocol: Document 01/31/24 08:58 NM (Rec: 01/31/24 09:46 NM [id number]) Manual Assessments Soft Tissue Assessment Soft Tissue Mobility Assessment Tightness R>L and hypertrophy of lumbar paraspinals L>R Joint Mobility Assessment Joint Mobility Assessment R rot inward, post rot, L shoulder higher, no scoliosis PT-OP-G Mobility & Gait Start: 01/28/24 16:40 Freq: Status: Active Protocol: Document 01/31/24 08:58 NM (Rec: 01/31/24 09:58 NM [id number]) OP Gait Assessment Gait Gait Assistance Required: Independent Distance (Feet) 150 Comments Gait Comments Decrease rotation at trunk, less rotation at hips and motion at TL junction R>L PT-OP-J Posture/Palpation/Skin Start: 01/28/24 16:40 Freq: Status: Active Protocol: Document 01/31/24 08:58 NM (Rec: 01/31/24 09:58 NM [id number]) Posture Evaluation Position Standing Head/C-Spine Posture Forward Head L-Spine Posture Increased Lordosis Shoulder Posture (L) Forward,(R) Forward,(L) Elevated Pelvis Posture Anteriorly Tilted,(R) PSIS Posterior Weight Distribution Balanced Knee Posture (L) Genu Valgus,(R) Genu Valgus Ankle/Foot Posture (L) Neutral,(R) Neutral Palpation Assessment Location lumbar spine Palpation Details Mild tenderness at lower lumbar spine and B SIJ/PSIS R> L; TL junction Mild tenderness at lumbar paraspinals PT-OP-K Range of Motion Start: 01/28/24 16:40 Freq: Status: Active Protocol: Document 01/31/24 08:58 NM (Rec: 01/31/24 09:46 NM [id number]) Lumbar Spine Range of Motion Lumbar Spine Active Percentage Flexion 100 Extension 100 Rotation Left 75 Rotation Right 100 Lateral Flexion Left 100 Lateral Flexion Right 100 Comments + : ext dmitry at [place], pain LF B, tape measure: Hip Goniometric Range of Motion Hip Right Extension 6 Internal Rotation 30 External Rotation 28 Comments Hip ext and hip IR/ER reproduces pinching in low back at TL junction Left Extension 10 Internal Rotation 40 External Rotation 40 PT-OP-L Special Tests Start: 01/28/24 16:40 Freq: Status: Active Protocol: Document 01/31/24 08:58 NM (Rec: 01/31/24 09:46 NM [id number]) Special Tests Lumbar Spine Special Tests Burnette/quadrant Test Results + Comments no radicular; local 3D pain PT-OP-M Strength Start: 01/28/24 16:40 Freq: Status: Active Protocol: Document 01/31/24 08:58 NM (Rec: 01/31/24 09:46 NM [id number]) Trunk Strength Trunk Manual Muscle Testing Flexion 4 Good Extension 4 Good Rotation Left 4+ Good+ Rotation Right 4+ Good+ Lateral Flexion Left 4+ Good+ Lateral Flexion Right 4+ Good+ Comments No pain reproduced with resisted testing; see plank and flexion resisted test for flex/ext strength Hip Strength Hip Manual Muscle Testing Right Flexion (L2) 4- Good- Extension (S1) 4 Good Abduction 4 Good Adduction 4+ Good+ External Rotation 4- Good- Internal Rotation 4- Good- Comments reproduced with hip ext Left Flexion (L2) 4- Good- Extension (S1) 4 Good Abduction 4 Good Adduction 4+ Good+ External Rotation 4- Good- Internal Rotation 4- Good- Knee Strength Knee Manual Muscle Testing Right Flexion (S2) 4+ Good+ Extension (L3) 4+ Good+ Left Flexion (S2) 4+ Good+ Extension (L3) 4+ Good+ PT-OP-Q Treatments Start: 01/28/24 16:40 Freq: Status: Active Protocol: Document 02/29/24 07:28 NM (Rec: 02/29/24 08:16 NM [id number]) Therapeutic Exercises Supine Exercises silvestre stretch Side bilateral Reps/Minutes 90 ea TrA activation Supine Exercise Name double leg bridge w/ hip ADD Side bilateral Equipment Used blue ball between thighs, with ppt Reps/Minutes 10 Standing Exercises staggered stance Standing Exercise Name 1. RDL, 2. RDL w/ hip IR Side bilateral Reps/Minutes 1. 10, 2. 8 ea w/ level 1 band under foot Comments post manual tx; cued to limit lumbar ext Other Exercises 1/2 kneel Other Exercise Name hip flexor stretch Equipment Used pillow under knee Reps/Minutes 60 Manual Therapy Treatment Consent Patient gave verbal consent for manual Yes treatment Soft Tissue Mobilization BLE Body Location QL and iliopsoas, glutes, HS, hip flexors Mobilization Type Rolling,Strumming,Sustained Pressure Intensity/Depth Moderate Body Position hooklying,prone Comments Emphasis on hip flexors today on R side, demos more prominent anterior iliac crest today R. Prone with pillows under hips. Monitored for pain . lumbar spine Body Location paraspinals, QL Mobilization Type Rolling,Strumming,Sustained Pressure Intensity/Depth Moderate Body Position Prone Comments Pillow under hips. Monitored for pain. Less tightness and mild tenderness over paraspinals and QL, reduced with soft tissue mobilization Joint Mobilizations lumbar spine Joint R SIJ Direction PA Grade II Body Position Prone Reps/Duration 2x30 ea Comments with 2 pillows under hips, passive movement into hip ext Manual Techniques MET Type R ant innom rot, L post innom rot Body Position Hooklying Reps/Duration 6x 6 hold Comments Monitored for pain; tested in long sitting> short sitting. Performed with R hip ext and L hip flex isometric using dowel PT-OP-T Assessment and Plan Start: 01/28/24 16:40 Freq: Status: Active Protocol: Document 02/29/24 07:28 NM (Rec: 02/29/24 08:16 NM [id number]) Physical Therapy Assessment Goals Four Impairment pain with lifting Short Term Goal (STG) Pt will be educated on abdominal bracing and breathwork management in order to improve ability to perform lifting ADLs at home 02/15/24: pt educated on abdominal bracing and breathwork STG Duration 4 weeks MET Transfer Specialist Goal (LTG) Pt will be able to perform at least 3/5 lifts from floor without increase in low back pain or compensation LTG Duration 12 weeks Three Impairment R hip mobility limited Halfway Goal (LTG) Pt will improve R hip IR and ER to at least 35 deg and B hip ext to at least 10 deg without increase in pain symptoms in order to demonstrate improvement in trunk movement during gait and exercise LTG Duration 12 weeks Two Impairment plank 26 with increased instability and pain in low back Short Term Goal (STG) Pt will be able to perform plank for at least 30 seconds with minimal compensations or signs of instability at trunk and no increase in back pain to demonstrate improved trunk strength for lifting and carrying ADLs STG Duration 8 weeks Halfway Goal (LTG) Pt will be able to perform plank for at least 1 minute with minimal compensations or signs of instability at trunk and no increase in back pain to demonstrate improved trunk strength for lifting and carrying ADLs LTG Duration 12 weeks One Impairment not performing HEP Short Term Goal (STG) Pt will report compliance with HEP at least 3x/wk in order to maximize progression with PT and transition to maintenance program upon discharge STG Duration 6 weeks Transfer Specialist Goal (LTG) Pt will report return to exercise at least 3x/wk ( lifting, HIIT, yoga, running, etc) with back pain <3/10 with activity LTG Duration 12 weeks Assessment Summary Assessment Increased time with manual treatment today due to pt reports of R SIJ pain at start of session. Demos more prominent R anterior innominate today, responds well to MET and SIJ stabilization training. Initiated staggered stance RDL and hip IR training to promote better hip mobility and for SIJ pain management. Cueing needed for correct execution especially to limit lumbar extension compensations . Pt reports decreased pain at end of session. She would continue to benefit from skilled PT for progressive flexibility, strengthening and pain management. Physical Therapy Plan Frequency and Duration Frequency of Treatment 1-2x/wk Duration of treatment (weeks) 12 Plan of Care Start Date 01/31/24 Plan of Care End Date 04/28/24 Therapeutic Interventions Therapeutic Interventions Balance Training,Gait Training ,Home Exercise Program,Joint Mobilizations,Manual Therapy, Neuromuscular Re-education, Orthotic/Prosthetic Management ,Patient/Caregiver Education, Self-Care/Home Management, Sensory Integration,Soft Tissue Mobilization,Taping, Therapeutic Activities, Therapeutic Exercises, Vestibular Rehabilitation Modalities Cold Pack/Ice Massage,Electric Stimulation,Hot Packs, Traction- Mechanical, Ultrasound Other Therapeutic Interventions pelvic realignment Trigger point treatment Next Visit Focus/Plan Next Note Type Progress Note Next Visit Plan limited HEP- progress ea session as magnus Trial squatting, squat row. sidelying on plinth (beached seal). Wall RDL (single leg w / hinge). sidelying QL stretch over ball and strengthening. hip stretching. breathwork management. Supine > sitting core bracing on ball. Progress to pallof, eventually progress to lift and rotation. Hip hinge mechanics, lifting, and ROM. Teach self STM. Progress into carries and lifting. In future, can trial HIIT or circuit Manual: STM to back and hips. R Hip mobilizations (IR/ER and ext, L hip ext), spine mobilizations as needed and tolerated
--- NOTE | 2024-03-07 10:45 | PT.OTN ---
Current Diagnoses Stiffness of right hip, not elsewhere classified (03/07/24) Stiffness of left hip, not elsewhere classified (03/07/24) Stiffness of other specified joint, not elsewhere classified (03/07/24) Low back pain, unspecified (03/07/24) Other lack of coordination (03/07/24) Weakness (03/07/24) Physical Therapy Treatment Note PT-OP-A Visit Information Start: 01/28/24 16:40 Freq: Status: Active Protocol: Document 03/07/24 07:23 NM (Rec: 03/07/24 08:17 NM [id number]) Out-Patient Physical Therapy Visit Information Visit Information Visit Type Progress Note Visit Note 12 visits incl eval/year Visit Start Time 07:30 Visit Stop Time 08:15 Visit Number 07/27 (04/26 2024) Evaluation Information Evaluation Date 01/31/24 PT-OP-B Current Condition Start: 01/28/24 16:40 Freq: Status: Active Protocol: Document 01/31/24 08:58 NM (Rec: 01/31/24 09:46 NM [id number]) Current Condition History of Current Condition Onset Date September 2023 Current Complaints pain History of Current Condition Pt reports pain back, R>L. She states it began in September 2023, thinks due to overuse, no specific event or trigger. Began with back spasms and tightness. She reprots that had to get a back brace to assist with sitting and doing ADLs/housework for about 1 week, on-off. In end of October, re-occured following a light yoga routine , reports got the spasms and tightness again. When in pain, pt has to lie down and wear a brace. Has gone to a chiropractor on-off, which has helped but not resolved the issues; was going to chiropractor for her neck then transitioned her to back. She likes to lift weights, run, play basketball; has had to taper her activity quite a bit . Pain is primarily in the low back, worse with HS stretch in sitting and deep squat/hip flexion. Has not been taking a muscle relaxer; prn advil. Pt reports that in highschool, she injured her back while lifting on R side; 7-8 years ago, reached from pull below feel level to lift child from pool. No numbness or tingling into BLE, no changes. Has 5 kids, youngest kid born in 2019. When had epidural with last kid, hard to get epidural in, lots of pain in R leg; following, RLE took longer to recover. No c-sections. Hips are tight, R>L, and painful. Current Functional Impairments (Reported) Functional Limitations- ADL's housework Functional Limitations- Work/School driving lifting Functional Limitations- Other yoga: prn stretching, not a great stretcher weight liftinx/wk (youtube ) - HIIT w/ dumbbells 8-15# db - unable to deadlift and squat, minimal lunges rest/light day 1-3 mi walk runnin mi (2-4 mi), does not stop during but afterwards PT-OP-C Subjective Start: 01/28/24 16:40 Freq: Status: Active Protocol: Document 03/07/24 07:23 NM (Rec: 03/07/24 08:17 NM [id number]) OP-PT Subjective Patient Comments Patient Comments Pt reports that she is improved since last week. States that she has not done all HEP, focusing more on stretching and ROM exercises but did do the strengthening with her weight lifting routine. She did the MET 1 other time, which helped but she reports not in pain. Yesterday, she played basketball with her kids; states that her low back is sore today and a little stiff, feels more on L side than R. Feels encouraged. Feels like at a point where she can back up with activity but slowly. Has done stationary weights usually but this past week, followed a video able to do squats and deadlifts; did partial ROM with light weight. States no pain with running last several times, hamstring stretching helping. PT-OP-E Functional Tests Start: 01/28/24 16:40 Freq: Status: Active Protocol: Document 01/31/24 08:58 NM (Rec: 01/31/24 09:46 NM [id number]) Functional Tests Other flexion test Name of Test arms across chest Score 10 Comment challenging, no pain plank Name of Test full plank for time Score 26 Comment feels tightness in lower back PT-OP-F Manual Assessment Start: 01/28/24 16:40 Freq: Status: Active Protocol: Document 01/31/24 08:58 NM (Rec: 12/16/24 09:46 NM [id number]) Manual Assessments Soft Tissue Assessment Soft Tissue Mobility Assessment Tightness R>L and hypertrophy of lumbar paraspinals L>R Joint Mobility Assessment Joint Mobility Assessment R rot inward, post rot, L shoulder higher, no scoliosis PT-OP-G Mobility & Gait Start: 01/28/24 16:40 Freq: Status: Active Protocol: Document 01/31/24 08:58 NM (Rec: 01/31/24 09:58 NM [id number]) OP Gait Assessment Gait Gait Assistance Required: Independent Distance (Feet) 150 Comments Gait Comments Decrease rotation at trunk, less rotation at hips and motion at TL junction R>L PT-OP-J Posture/Palpation/Skin Start: 01/28/24 16:40 Freq: Status: Active Protocol: Document 01/31/24 08:58 NM (Rec: 01/31/24 09:58 NM [id number]) Posture Evaluation Position Standing Head/C-Spine Posture Forward Head L-Spine Posture Increased Lordosis Shoulder Posture (L) Forward,(R) Forward,(L) Elevated Pelvis Posture Anteriorly Tilted,(R) PSIS Posterior Weight Distribution Balanced Knee Posture (L) Genu Valgus,(R) Genu Valgus Ankle/Foot Posture (L) Neutral,(R) Neutral Palpation Assessment Location lumbar spine Palpation Details Mild tenderness at lower lumbar spine and B SIJ/PSIS R> L; TL junction Mild tenderness at lumbar paraspinals PT-OP-K Range of Motion Start: 01/28/24 16:40 Freq: Status: Active Protocol: Document 03/07/24 07:23 NM (Rec: 03/07/24 08:17 NM [id number]) Lumbar Spine Range of Motion Lumbar Spine Active Percentage Flexion 100 Extension 100 Rotation Left 75 Rotation Right 100 Lateral Flexion Left 100 Lateral Flexion Right 100 Comments + : ext dmitry at TL Junction, pain LF B, tape measure: Hip Goniometric Range of Motion Hip Right Extension 6 Internal Rotation 35 External Rotation 30 Comments Hip ext and hip IR/ER reproduces pinching in low back at TL junction Left Extension 10 Internal Rotation 40 External Rotation 40 PT-OP-L Special Tests Start: 01/28/24 16:40 Freq: Status: Active Protocol: Document 01/31/24 08:58 NM (Rec: 12/16/24 09:46 NM [id number]) Special Tests Lumbar Spine Special Tests Burnette/quadrant Test Results + Comments no radicular; local 3D pain PT-OP-M Strength Start: 01/28/24 16:40 Freq: Status: Active Protocol: Document 03/07/24 07:23 NM (Rec: 03/07/24 08:17 NM [id number]) Trunk Strength Trunk Manual Muscle Testing Flexion 4 Good Extension 4 Good Rotation Left 4+ Good+ Rotation Right 4+ Good+ Lateral Flexion Left 4+ Good+ Lateral Flexion Right 4+ Good+ Comments No pain reproduced with resisted testing; see plank and flexion resisted test for flex/ext strength Hip Strength Hip Manual Muscle Testing Right Flexion (L2) 4- Good- Extension (S1) 4 Good Abduction 4 Good Adduction 4+ Good+ External Rotation 4- Good- Internal Rotation 4- Good- Comments reproduced with hip ext Left Flexion (L2) 4- Good- Extension (S1) 4 Good Abduction 4 Good Adduction 4+ Good+ External Rotation 4- Good- Internal Rotation 4- Good- PT-OP-Q Treatments Start: 01/28/24 16:40 Freq: Status: Active Protocol: Document 03/07/24 07:23 NM (Rec: 03/07/24 08:17 NM [id number]) Therapeutic Exercises Supine Exercises HS stretch Supine Exercise Name HS stretch-HEP review Side bilateral Equipment Used w/ strap Reps/Minutes 2x30 ea Comments warm up figure 4 stretch Side bilateral Equipment Used mat on floor Reps/Minutes 2x30 ea Comments warm up; w/ rotation Prone Exercises plank Prone Exercise Name for goals Equipment Used full plank Reps/Minutes 30 Comments pain free; maintains hip extension Prone Exercise Name 1. opp/arm leg alt; 2.superman Side bilateral Equipment Used mat on floor Reps/Minutes 1. 10 ea, 2. 10 ea Comments LLE hip ext mild pinch Sidelying Exercises hip adduction Side bilateral Equipment Used mat on floor Reps/Minutes 15 ea Comments no pain Standing Exercises hip ADD slider Side bilateral Equipment Used slider under foot Reps/Minutes 10 ea Comments for hip add; no pain staggered stance Standing Exercise Name RDL w/ hip IR Side bilateral Resistance foot on wall Equipment Used level 1 Reps/Minutes 10 ea Other Exercises hip mobility Other Exercise Name hip mobilization Side left Equipment Used PA c/ level 5 band Reps/Minutes 10x5 ea quadruped Other Exercise Name 1. cat camel, 2. hip swivel,3. hip CARS and ADD rockbacks, 4 . thread needle Side bilateral Equipment Used mat on floor Reps/Minutes 5-10 ea Comments min pain w/ trunk ext @ SIJ Manual Therapy Treatment Consent Patient gave verbal consent for manual Yes treatment Joint Mobilizations L hip Direction PA Grade II Body Position Prone Reps/Duration 2x30 Comments c/ passive hip ext lumbar spine Joint L SIJ Direction PA, caudal Grade II Body Position Prone Reps/Duration 6x30 ea Comments c/ passive movement into hip ext, hip rotation ER/IR. relief with caudal glide, also performed with shear inf L, R sup PT-OP-T Assessment and Plan Start: 01/28/24 16:40 Freq: Status: Active Protocol: Document 03/07/24 07:23 NM (Rec: 03/07/24 08:17 NM [id number]) Physical Therapy Assessment Goals Four Impairment pain with lifting Short Term Goal (STG) Pt will be educated on abdominal bracing and breathwork management in order to improve ability to perform lifting ADLs at home 02/15/24: pt educated on abdominal bracing and breathwork STG Duration 4 weeks MET Fdc Goal (LTG) Pt will be able to perform at least 3/5 lifts from floor without increase in low back pain or compensation 03/07/24: progressing, able to do low level lifts, partial ROM, pt slowly progressing ROM LTG Duration 12 weeks PROGRESSING 03/07 Three Impairment R hip mobility limited Fdc Goal (LTG) Pt will improve R hip IR and ER to at least 35 deg and B hip ext to at least 10 deg without increase in pain symptoms in order to demonstrate improvement in trunk movement during gait and exercise 03/07/24: 35 deg IR, 30 deg ER LTG Duration 12 weeks PROGRESSING 03/07 Two Impairment plank 26 with increased instability and pain in low back Short Term Goal (STG) Pt will be able to perform plank for at least 30 seconds with minimal compensations or signs of instability at trunk and no increase in back pain to demonstrate improved trunk strength for lifting and carrying ADLs 03/07/24: STG Duration 8 weeks Engineering Administrator Goal (LTG) Pt will be able to perform plank for at least 1 minute with minimal compensations or signs of instability at trunk and no increase in back pain to demonstrate improved trunk strength for lifting and carrying ADLs LTG Duration 12 weeks One Impairment not performing HEP Short Term Goal (STG) Pt will report compliance with HEP at least 3x/wk in order to maximize progression with PT and transition to maintenance program upon discharge 03/07/24: compliant with HEP per prescription STG Duration 6 weeks MET Fdc Goal (LTG) Pt will report return to exercise at least 3x/wk ( lifting, HIIT, yoga, running, etc) with back pain <3/10 with activity 02/04/25: pt back to lifting 2x/wk and running 2-3x/wk LTG Duration 12 weeks PROGRESSING 03/07 Progress Towards Goals Progress Towards Goals Progressing Toward Goals,Goals Met Progress Comments Met several STGs, progressing toward LTGs Assessment Summary Assessment Pt continues to report intermittent aching and pinching at L SIJ today, but improved at end of session compared to start of session; worse with hip ext. Trialed inferior glide SIJ mobilizations, good relief at SIJ with caudal gliding but not completely resolved. Progressed into hip adduction and continued with glute strengthening with rotation component to further stabilize SIJ. L hip ext ROM and strength still limited compared to R side. PT and pt planning to move to every other week visits to maximize PT visits available for 2024. Physical Therapy Plan Frequency and Duration Frequency of Treatment 1-2x/wk Duration of treatment (weeks) 12 Plan of Care Start Date 01/31/24 Plan of Care End Date 04/28/24 Therapeutic Interventions Therapeutic Interventions Balance Training,Gait Training ,Home Exercise Program,Joint Mobilizations,Manual Therapy, Neuromuscular Re-education, Orthotic/Prosthetic Management ,Patient/Caregiver Education, Self-Care/Home Management, Sensory Integration,Soft Tissue Mobilization,Taping, Therapeutic Activities, Therapeutic Exercises, Vestibular Rehabilitation Modalities Cold Pack/Ice Massage,Electric Stimulation,Hot Packs, Traction- Mechanical, Ultrasound Other Therapeutic Interventions pelvic realignment Trigger point treatment Next Visit Focus/Plan Next Note Type Treatment Note Next Visit Plan limited HEP- progress ea session as magnus Step taps downs for glute med. Assess SIJ mob, w/ carryover for HEP dmitry with hip ext. Side plank vs beached seal, progress to single leg RDL. Trial squatting, squat row. sidelying QL stretch over ball and strengthening. hip stretching. breathwork management. Supine > sitting core bracing on ball. Progress to pallof, eventually progress to lift and rotation. Hip hinge mechanics, lifting, and ROM. Teach self STM. Progress into carries and lifting. In future, can trial HIIT or circuit Manual: STM to back and hips. R Hip mobilizations (IR/ER and ext, L hip ext), spine mobilizations as needed and tolerated
--- NOTE | 2024-03-28 08:15 | PT.OTN ---
Current Diagnoses Stiffness of right hip, not elsewhere classified (03/28/24) Stiffness of left hip, not elsewhere classified (03/28/24) Stiffness of other specified joint, not elsewhere classified (03/28/24) Low back pain, unspecified (03/28/24) Other lack of coordination (03/28/24) Weakness (03/28/24) Physical Therapy Treatment Note PT-OP-A Visit Information Start: 01/28/24 16:40 Freq: Status: Active Protocol: Document 03/28/24 07:29 NM (Rec: 03/28/24 08:14 NM [id number]) Out-Patient Physical Therapy Visit Information Visit Information Visit Type Discharge Summary Visit Note 12 visits incl eval/year Visit Start Time 07:30 Visit Stop Time 08:12 Visit Number 7 (05/27 for 2024) Evaluation Information Evaluation Date 01/31/24 PT-OP-B Current Condition Start: 01/28/24 16:40 Freq: Status: Active Protocol: Document 01/31/24 08:58 NM (Rec: 01/31/24 09:46 NM [id number]) Current Condition History of Current Condition Onset Date September 2023 Current Complaints pain History of Current Condition Pt reports pain back, R>L. She states it began in September 2023, thinks due to overuse, no specific event or trigger. Began with back spasms and tightness. She reprots that had to get a back brace to assist with sitting and doing ADLs/housework for about 1 week, on-off. In end of October, re-occured following a light yoga routine , reports got the spasms and tightness again. When in pain, pt has to lie down and wear a brace. Has gone to a chiropractor on-off, which has helped but not resolved the issues; was going to chiropractor for her neck then transitioned her to back. She likes to lift weights, run, play basketball; has had to taper her activity quite a bit . Pain is primarily in the low back, worse with HS stretch in sitting and deep squat/hip flexion. Has not been taking a muscle relaxer; prn advil. Pt reports that in highschool, she injured her back while lifting on R side; 7-8 years ago, reached from pull below feel level to lift child from pool. No numbness or tingling into BLE, no changes. Has 5 kids, youngest kid born in 2019. When had epidural with last kid, hard to get epidural in, lots of pain in R leg; following, RLE took longer to recover. No c-sections. Hips are tight, R>L, and painful. Current Functional Impairments (Reported) Functional Limitations- ADL's housework Functional Limitations- Work/School driving lifting Functional Limitations- Other yoga: prn stretching, not a great stretcher weight liftinx/wk (youtube ) - HIIT w/ dumbbells 8-15# db - unable to deadlift and squat, minimal lunges rest/light day 1-3 mi walk runnin mi (2-4 mi), does not stop during but afterwards PT-OP-C Subjective Start: 01/28/24 16:40 Freq: Status: Active Protocol: Document 03/28/24 07:29 NM (Rec: 03/28/24 08:14 NM [id number]) OP-PT Subjective Patient Comments Patient Comments Pt reports that she is back to her normal, she reports still tight. She has tapered off of HEP but back to lifting/ running. Reports that her back feels a lot better. States back to playing basketball just not totally 100%, but played for 30-45 min. PT-OP-E Functional Tests Start: 01/28/24 16:40 Freq: Status: Active Protocol: Document 01/31/24 08:58 NM (Rec: 01/31/24 09:46 NM [id number]) Functional Tests Other flexion test Name of Test arms across chest Score 10 Comment challenging, no pain plank Name of Test full plank for time Score 26 Comment feels tightness in lower back PT-OP-F Manual Assessment Start: 01/28/24 16:40 Freq: Status: Active Protocol: Document 01/31/24 08:58 NM (Rec: 01/31/24 09:46 NM [id number]) Manual Assessments Soft Tissue Assessment Soft Tissue Mobility Assessment Tightness R>L and hypertrophy of lumbar paraspinals L>R Joint Mobility Assessment Joint Mobility Assessment R rot inward, post rot, L shoulder higher, no scoliosis PT-OP-G Mobility & Gait Start: 01/28/24 16:40 Freq: Status: Active Protocol: Document 01/31/24 08:58 NM (Rec: 01/31/24 09:58 NM [id number]) OP Gait Assessment Gait Gait Assistance Required: Independent Distance (Feet) 150 Comments Gait Comments Decrease rotation at trunk, less rotation at hips and motion at TL junction R>L PT-OP-J Posture/Palpation/Skin Start: 01/28/24 16:40 Freq: Status: Active Protocol: Document 01/31/24 08:58 NM (Rec: 01/31/24 09:58 NM [id number]) Posture Evaluation Position Standing Head/C-Spine Posture Forward Head L-Spine Posture Increased Lordosis Shoulder Posture (L) Forward,(R) Forward,(L) Elevated Pelvis Posture Anteriorly Tilted,(R) PSIS Posterior Weight Distribution Balanced Knee Posture (L) Genu Valgus,(R) Genu Valgus Ankle/Foot Posture (L) Neutral,(R) Neutral Palpation Assessment Location lumbar spine Palpation Details Mild tenderness at lower lumbar spine and B SIJ/PSIS R> L; TL junction Mild tenderness at lumbar paraspinals PT-OP-K Range of Motion Start: 01/28/24 16:40 Freq: Status: Active Protocol: Document 03/28/24 07:29 NM (Rec: 03/28/24 08:14 NM [id number]) Hip Goniometric Range of Motion Hip Right Extension 10 Internal Rotation 40 External Rotation 38 Comments IE: Hip ext and hip IR/ER reproduces pinching in low back at TL junction Left Extension 10 Internal Rotation 40 External Rotation 40 PT-OP-L Special Tests Start: 01/28/24 16:40 Freq: Status: Active Protocol: Document 01/31/24 08:58 NM (Rec: 01/31/24 09:46 NM [id number]) Special Tests Lumbar Spine Special Tests Burnette/quadrant Test Results + Comments no radicular; local 3D pain PT-OP-M Strength Start: 01/28/24 16:40 Freq: Status: Active Protocol: Document 03/28/24 07:29 NM (Rec: 03/28/24 08:14 NM [id number]) Hip Strength Hip Manual Muscle Testing Right Flexion (L2) 4- Good- Extension (S1) 4 Good Abduction 4 Good Adduction 4+ Good+ External Rotation 4+ Good+ Internal Rotation 4+ Good+ Comments reproduced with hip ext Left Flexion (L2) 4- Good- Extension (S1) 4 Good Abduction 4 Good Adduction 4+ Good+ External Rotation 4+ Good+ Internal Rotation 4+ Good+ PT-OP-Q Treatments Start: 01/28/24 16:40 Freq: Status: Active Protocol: Document 03/28/24 07:29 NM (Rec: 03/28/24 08:14 NM [id number]) Therapeutic Exercises Supine Exercises hip flexion Supine Exercise Name 1. eccentric march (mod silvestre position), 2. ecc hip flex ( non silvestre) Side bilateral Equipment Used knees slightly bent Reps/Minutes 1. 10 ea leg, 2. 10 ea Comments pain free silvestre stretch Side bilateral Reps/Minutes 60 Comments demos quad tightness, R>L Prone Exercises plank Prone Exercise Name for goals Equipment Used full plank Reps/Minutes 60 Comments pain free; maintains Sidelying Exercises side plank Side bilateral Reps/Minutes 2x30 Standing Exercises single leg RDL Standing Exercise Name HEP Side bilateral Resistance AROM Equipment Used modified to kickstand RDL for balance Reps/Minutes 8 AROM, 10 ea Comments maintains neutral spine, good hinge triple ext Standing Exercise Name hands supported on wall Side bilateral Resistance AROM Reps/Minutes 10 ea Comments edu on use of band for progression, then full lunge triple ext deadlifts Side bilateral Resistance 8# db Reps/Minutes 12 Comments pain free; cued more hip hinge staggered stance Standing Exercise Name hip airplane Side bilateral Resistance 5# db Equipment Used foot on wall Reps/Minutes 10 ea PT-OP-T Assessment and Plan Start: 01/28/24 16:40 Freq: Status: Active Protocol: Document 03/28/24 07:29 NM (Rec: 03/28/24 08:14 NM [id number]) Physical Therapy Assessment Goals Four Impairment pain with lifting Short Term Goal (STG) Pt will be educated on abdominal bracing and breathwork management in order to improve ability to perform lifting ADLs at home 02/15/24: pt educated on abdominal bracing and breathwork STG Duration 4 weeks MET Correction Goal (LTG) Pt will be able to perform at least 3/5 lifts from floor without increase in low back pain or compensation 03/07/24: progressing, able to do low level lifts, partial ROM, pt slowly progressing ROM 03/28/24: 15 reps, no pain from partial rom then progression toward rom from floor LTG Duration 12 weeks MET 03/28 Three Impairment R hip mobility limited Guest Room Attendant Goal (LTG) Pt will improve R hip IR and ER to at least 35 deg and B hip ext to at least 10 deg without increase in pain symptoms in order to demonstrate improvement in trunk movement during gait and exercise 03/07/24: 35 deg IR, 30 deg ER 03/28/24: B hip ext 10 deg, no pain; improved hip ER/IR B>35 ea LTG Duration 12 weeks MET 03/28 Two Impairment plank 26 with increased instability and pain in low back Short Term Goal (STG) Pt will be able to perform plank for at least 30 seconds with minimal compensations or signs of instability at trunk and no increase in back pain to demonstrate improved trunk strength for lifting and carrying ADLs STG Duration 8 weeks Guest Room Attendant Goal (LTG) Pt will be able to perform plank for at least 1 minute with minimal compensations or signs of instability at trunk and no increase in back pain to demonstrate improved trunk strength for lifting and carrying ADLs 03/28/24: planks 1 min, no pain ; improved stability LTG Duration 12 weeks MET One Impairment not performing HEP Short Term Goal (STG) Pt will report compliance with HEP at least 3x/wk in order to maximize progression with PT and transition to maintenance program upon discharge 03/07/24: compliant with HEP per prescription STG Duration 6 weeks MET Correction Goal (LTG) Pt will report return to exercise at least 3x/wk ( lifting, HIIT, yoga, running, etc) with back pain <3/10 with activity 02/04/25: pt back to lifting 2x/wk and running 2-3x/wk 03/28/24: back to PLOF with lifting, running, compliant with HEP LTG Duration 12 weeks MET Progress Towards Goals Progress Towards Goals Goals Met Progress Comments Progressing well with pain management Assessment Summary Assessment Pt tolerated session well, demos progression toward goals , meeting all. Good tolerance for therapeutic exercise during session. Due to hip tightness, added eccentric and concentric hip flexor strengthening; pt pain free through entire ROM. Educated to perform intermittently for stability and muscle lengthening for running form. Trialed progression to single leg RDL, but needs modified version for correct execution. PT and pt discussed discharge today as pt has been managing symptoms well for several weeks and is back to prior level of exercise. PT and pt in agreement. Physical Therapy Plan Frequency and Duration Frequency of Treatment 1-2x/wk Duration of treatment (weeks) 12 Plan of Care Start Date 01/31/24 Plan of Care End Date 04/28/24 Therapeutic Interventions Therapeutic Interventions Balance Training,Gait Training ,Home Exercise Program,Joint Mobilizations,Manual Therapy, Neuromuscular Re-education, Orthotic/Prosthetic Management ,Patient/Caregiver Education, Self-Care/Home Management, Sensory Integration,Soft Tissue Mobilization,Taping, Therapeutic Activities, Therapeutic Exercises, Vestibular Rehabilitation Modalities Cold Pack/Ice Massage,Electric Stimulation,Hot Packs, Traction- Mechanical, Ultrasound Other Therapeutic Interventions pelvic realignment Trigger point treatment Discharge Physical Therapy Discharge Reasons Goals Met Discharge Comments All goals met. Pt reports back to PLOF with exercise, all ADLs. Managing symptoms when present IND with HEP. Pt and PT discussed discharge to maintenance program to maximize remaining visits for year. PT and pt in agreement. PT also educated pt to follow up with PCP if symptoms return , change, or worse, or for new PT evaluation. Pt verbalizes understanding; issued HEP progressions for pt to continue to maximize strengthening and stability. Next Visit Focus/Plan Next Note Type Discharge Summary Next Visit Plan discharge from PT
== END 2024-03-30 15:00 | disposition home or self-care (01) ==
LOC: PHYS 07:30
PROVIDERS: Family Provider Registered Nurse Diabetes Educator; PCP Registered Nurse Diabetes Educator; Referring Provider Registered Nurse Diabetes Educator; Visit Provider Registered Nurse Diabetes Educator
DX: M54.50 Low back pain, unspecified (principal); R53.1 Weakness; M25.651 Stiffness of right hip, not elsewhere classified; M25.652 Stiffness of left hip, not elsewhere classified; M25.69 Stiffness of other specified joint, not elsewhere classified; R27.8 Other lack of coordination
CPT/HCPCS: 97110; 97140; 97161; 97535